=== PATIENT | female | born 1995 | race Caucasian/White ===

== ENCOUNTER 2018-02-13 13:16 | Emergency (ER) | payer SELFPAY ==
[~2018-02-13] VITALS: Ht 165.1 cm; Wt 87.5 kg
[2018-02-13 13:40] LABS: BILIRUBIN,URINE NEGATIVE (NEGATIVE); CLARITY,URINE SLIGHTLY CLOUDY; COLOR,URINE YELLOW; GLUCOSE, URINE (UA) NEGATIVE (NEGATIVE); KETONES,URINE NEGATIVE (NEGATIVE); LEUKOCYTE ESTERASE ,URINE NEGATIVE (NEGATIVE); NITRITE,URINE NEGATIVE (NEGATIVE); PH,URINE 7 (5-9); PROTEIN,URINE NEGATIVE (NEGATIVE); UROBILINOGEN,URINE NORMAL (NORMAL)
[2018-02-13 13:48] LABS: BACTERIA,URINE TRACE /HPF; WBC,URINE RARE /HPF
[2018-02-13 14:14] LABS: AMPHETAMINE SCREEN, URINE NEGATIVE (NEGATIVE); BARBITURATE SCREEN URINE NEGATIVE (NEGATIVE); BENZODIAZEPINES SCREEN URINE POSITIVE (NEGATIVE); CANNABINOID SCREEN, URINE NEGATIVE (NEGATIVE); COCAINE SCREEN URINE NEGATIVE (NEGATIVE); METHADONE STAT NEGATIVE (NEGATIVE); METHAMPHETAMINE SCREEN URINE S NEGATIVE (NEGATIVE); OPIATE SCREEN URINE NEGATIVE (NEGATIVE); OXYCODONE STAT NEGATIVE (NEGATIVE); PROPOXYPHENE STAT NEGATIVE (NEGATIVE); TRICYCLIC ANTIDEPRESSANTS SCRE NEGATIVE (NEGATIVE)
[2018-02-13] MEDS ORDERED: ONDANSETRON 4 MG/2 ML (SDV) Z0FRAN IVP ONE (14:30)
[2018-02-13] MEDS ORDERED: KETOROLAC 30 MG/ML VIAL IVP STA (14:30)
[2018-02-13] MEDS ORDERED: NS IV 1000 ML 1,000 ML IV ONE ×2 (14:30→15:14)
--- NOTE | 2018-02-13 14:32 | ED General ---
General Chief Complaint: General Problems/Pain Stated Complaint: FEVER/N/V Nursing Triage Note: Patient advises she has not felt well x 2 days and has been experiencing n/v. She advises she was admitted for 5 days to an [place] hospital approx. 8 months ago for sepsis. She advises they were going to put her on life support and never told her what was wrong and discharged her. She advises she feels sick like that again and has vomitted x 2 today and began experiencing a sore throat two days ago. Nursing Sepsis Screen: Possible Sepsis Risk Source of Information: Patient Exam Limitations: No Limitations History of Present Illness Date Seen by Provider: February 13, 2018 Time Seen by Provider: 14:12 Initial Comments 22-year-old female patient presents with complaints of fever, nausea, vomiting, diarrhea, sore throat, cough, congestion, and generalized body aches 2 days. Denies any recent contacts with similar symptoms. Patient reports 8 months ago being hospitalized in [place] for sepsis. Never received a definite diagnosis. Reports nausea, vomiting, and diarrhea similar to previous symptoms. Denies using any hjyd-qel-nxcpbbs medications for symptoms. Timing/Duration: 1-2 Days, Constant Allergies and Home Medications Allergies Coded Allergies: adhesive (Verified Allergy, Unknown, 02/13/18) tramadol (Verified Allergy, Unknown, 02/13/18) Uncoded Allergies: CODIENE (Allergy, Unknown, 02/13/18) Home Medications Ondansetron 8 Mg Tab.rapdis, 8 MG PO Q6H PRN for NAUSEA/VOMITING-1ST LINE Prescribed by: ROSARIO BUSH on 02/13/18 7488 Patient Home Medication List Home Medication List Reviewed: Yes Review of Systems Constitutional: chills; No dizziness; fever, malaise EENTM: ear pain, nose congestion, throat pain, other (rhinorrhea, sneezing); No throat swelling Respiratory: cough, phlegm; No short of breath, No wheezing Gastrointestinal: No abdominal pain; diarrhea; No hematemesis; loss of appetite ; No melena; nausea, vomiting Genitourinary: no symptoms reported Musculoskeletal: other (generalized body aches) Skin: no symptoms reported Psychiatric/Neurological: Headache; Denies Numbness, Denies Paresthesia, Denies Seizure, Denies Tingling All Other Systems Reviewed Negative Unless Noted: Yes (Negative excepted noted.) Past Agaxnmj-Wnabjf-Gsysyl Hx Patient Social History Alcohol Use: Denies Use Recreational Drug Use: No Smoking Status: Never a Smoker Recent Foreign Travel: No Contact w/Someone Who Travel: No Recent Infectious Disease Expo: No Recent Hopitalizations: Yes (advises admitted in [place] 8 months ago for sepsis) Physical Abuse: No Sexual Abuse: No Seasonal Allergies Seasonal Allergies: No Past Medical History Surgeries: Yes Appendectomy Respiratory: No Cardiac: No Neurological: Yes Headaches /Migraines, Seizure Disorder : No Female Reproductive Disorders: Pelvic Inflammatory Dis, Endometriosis, Polycystic Ovarian Dis Genitourinary: No Gastrointestinal: No Musculoskeletal: No Endocrine: No HEENT: No Cancer: No Psychosocial: Yes Anxiety, Bipolar, Depression Nursing Suicide Risk Score: 0 Integumentary: No Family Medical History Reviewed and Corrections made No Pertinent Family Hx, Psychiatric Problems Physical Exam Vital Signs Vital Signs - First Documented 02/13/18 13:56 Temp 99.7 Pulse 102 Resp 18 B/P (MAP) 140/87 (104) Pulse Ox 98 O2 Delivery Room Air Capillary Refill : Less Than 3 Seconds General Appearance: No Apparent Distress, WD/WN HEENT: PERRL/EOMI, Pharyngeal Erythema; No Photophobia; Other (cerumen impaction bilaterally TM's non-visible. (+) nasal congestion.) Neck: Full Range of Motion, Normal Inspection, Supple, Lymphadenopathy (L), Lymphadenopathy (R), Other (anterior neck lymph nodes TTP.) Respiratory: Lungs Clear, Normal Breath Sounds, No Accessory Muscle Use, No Respiratory Distress Cardiovascular: No Edema, No Murmur, Normal Peripheral Pulses, Tachycardia Gastrointestinal: Normal Bowel Sounds, No Organomegaly, Non Tender, Soft; No Distended Back: Normal Inspection, No CVA Tenderness Extremity: Normal Capillary Refill, No Pedal Edema Neurologic/Psychiatric: Alert, Oriented x3, Normal Mood/Affect Skin: Normal Color, Warm/Dry Focused Exam Lactate Level 02/13/18 15:30: Lactic Acid Level 0.74 Lactic Acid Level Progress/Results/Core Measures Suspected Sepsis Recent Fever Within 48 Hours: Yes Infection Criteria Present: Suspected New Infection New/Unexplained Altered Menta: No Sepsis Screen: Possible Sepsis Risk SIRS Temperature:99.7 Pulse: 102 Respiratory Rate: 18 Laboratory Tests 02/13/18 14:53: White Blood Count 14.2H Blood Pressure 140 /87 Mean: 104 02/13/18 15:30: Lactic Acid Level 0.74 Laboratory Tests 02/13/18 14:53: Creatinine 0.90, Platelet Count 184, Total Bilirubin 0.6 Results/Orders Lab Results Laboratory Tests Test 02/13/18 13:28 02/13/18 14:38 02/13/18 14:53 02/13/18 15:30 Range/Units Urine Color YELLOW Urine Clarity SLIGHTLY CLOUDY Urine pH 7 5-9 Urine Specific Cable 1.005 L 1.016-1.022 Urine Protein NEGATIVE NEGATIVE Urine Glucose (UA) NEGATIVE NEGATIVE Urine Ketones NEGATIVE NEGATIVE Urine Nitrite NEGATIVE NEGATIVE Urine Bilirubin NEGATIVE NEGATIVE Urine Urobilinogen NORMAL NORMAL MG/DL Urine Leukocyte Esterase NEGATIVE NEGATIVE Urine RBC (Auto) NEGATIVE NEGATIVE Urine RBC NONE /HPF Urine WBC RARE /HPF Urine Squamous Epithelial Cells 5-10 /HPF Urine Crystals NONE /LPF Urine Bacteria TRACE /HPF Urine Casts NONE /LPF Urine Mucus NEGATIVE /LPF Urine Culture Indicated NO Urine Opiates Screen NEGATIVE NEGATIVE Urine Oxycodone Screen NEGATIVE NEGATIVE Urine Methadone Screen NEGATIVE NEGATIVE Urine Propoxyphene Screen NEGATIVE NEGATIVE Urine Barbiturates Screen NEGATIVE NEGATIVE Ur Tricyclic Antidepressants Screen NEGATIVE NEGATIVE Urine Phencyclidine Screen NEGATIVE NEGATIVE Urine Amphetamines Screen NEGATIVE NEGATIVE Urine Methamphetamines Screen NEGATIVE NEGATIVE Urine Benzodiazepines Screen POSITIVE H NEGATIVE Urine Cocaine Screen NEGATIVE NEGATIVE Urine Cannabinoids Screen NEGATIVE NEGATIVE Group A Streptococcus Screen NEGATIVE NEGATIVE White Blood Count 14.2 H 4.3-11.0 10^3/uL Red Blood Count 4.56 4.35-5.85 10^6/uL Hemoglobin 13.4 11.5-16.0 G/DL Hematocrit 40 35-52 % Mean Corpuscular Volume 87 80-99 FL Mean Corpuscular Hemoglobin 29 25-34 PG Mean Corpuscular Hemoglobin Concent 34 32-36 G/DL Red Cell Distribution Width 12.9 10.0-14.5 % Platelet Count 184 130-400 10^3/uL Mean Platelet Volume 11.4 H 7.4-10.4 FL Neutrophils (%) (Auto) 82 H 42-75 % Lymphocytes (%) (Auto) 12 12-44 % Monocytes (%) (Auto) 6 0-12 % Eosinophils (%) (Auto) 0 0-10 % Basophils (%) (Auto) 0 0-10 % Neutrophils # (Auto) 11.6 H 1.8-7.8 X 10^3 Lymphocytes # (Auto) 1.7 1.0-4.0 X 10^3 Monocytes # (Auto) 0.9 0.0-1.0 X 10^3 Eosinophils # (Auto) 0.0 0.0-0.3 10^3/uL Basophils # (Auto) 0.0 0.0-0.1 10^3/uL Neutrophils % (Manual) 73 % Lymphocytes % (Manual) 15 % Monocytes % (Manual) 10 % Eosinophils % (Manual) 2 % Basophils % (Manual) 0 % Band Neutrophils 0 % Blood Morphology Comment NORMAL Sodium Level 138 135-145 MMOL/L Potassium Level 4.2 3.6-5.0 MMOL/L Chloride Level 107 98-107 MMOL/L Carbon Dioxide Level 23 21-32 MMOL/L Anion Gap 8 5-14 MMOL/L Blood Urea Nitrogen 11 7-18 MG/DL Creatinine 0.90 0.60-1.30 MG/DL Estimat Glomerular Filtration Rate > 60 BUN/Creatinine Ratio 12 Glucose Level 98 70-105 MG/DL Calcium Level 9.1 8.5-10.1 MG/DL Total Bilirubin 0.6 0.1-1.0 MG/DL Aspartate Amino Transf (AST/SGOT) 19 5-34 U/L Alanine Aminotransferase (ALT/SGPT) 16 0-55 U/L Alkaline Phosphatase 72 40-136 U/L C-Reactive Protein High Sensitivity 0.75 H 0.00-0.50 MG/DL Total Protein 6.8 6.4-8.2 GM/DL Albumin 4.1 3.2-4.5 GM/DL Monoscreen NEGATIVE NEGATIVE Lactic Acid Level 0.74 0.50-2.00 MMOL/L Micro Results Microbiology 02/13/18 Influenza Types A,B Antigen (ERIN) - Final, Complete My Orders Orders - ROSARIO BUSH Urine Bedside (02/13/18 13:33) Ua Culture If Indicated (02/13/18 13:33) Drug Screen Stat (Urine) (02/13/18 13:49) Cbc With Automated Diff (02/13/18 14:30) Comprehensive Metabolic Panel (02/13/18 14:30) Hs C Reactive Protein (02/13/18 14:30) Monotest (02/13/18 14:30) Rapid Strep A Screen (02/13/18 14:30) Influenza A And B Antigens (02/13/18 14:30) Ondansetron Injection (Zofran Injectio (02/13/18 14:30) Saline Lock/Iv-Start (02/13/18 14:30) Ketorolac Injection (Toradol Injection) (02/13/18 14:30) Ns Iv 1000 Ml (Sodium Chloride 0.9%) (02/13/18 14:30) Manual Differential (02/13/18 14:53) Lactic Acid Analyzer (02/13/18 15:14) Blood Culture (02/13/18 15:14) Ns Iv 1000 Ml (Sodium Chloride 0.9%) (02/13/18 15:14) Chest 1 View, Ap/Pa Only (02/13/18 15:15) Medications Given in ED Current Medications Medications Dose Ordered Sig/Karolina Route Start Time Stop Time Status Last Admin Dose Admin Ondansetron HCl 4 mg ONCE ONCE IVP 02/13/18 14:30 02/13/18 14:32 DC 02/13/18 14:41 4 MG Sodium Chloride 1,000 ml @ 0 mls/hr Q0M ONCE IV 02/13/18 14:30 02/13/18 14:32 DC 02/13/18 14:41 0 MLS/HR Sodium Chloride 1,000 ml @ 0 mls/hr Q0M ONCE IV 02/13/18 15:14 02/13/18 15:15 DC 02/13/18 15:43 0 MLS/HR Vital Signs/I&O 02/13/18 02/13/18 13:56 16:20 Temp 99.7 99.7 Pulse 102 102 Resp 18 18 B/P (MAP) 140/87 (104) 140/87 (104) Pulse Ox 98 98 O2 Delivery Room Air Capillary Refill : Less Than 3 Seconds Blood Pressure Mean: 104 Point of Care Testing Urine -Bedside: Negative Departure Communication (Admissions) Patient feels much better with medications. Plan for dsch to home. Impression Primary Impression: Influenza-like illness Additional Impression: Nausea, vomiting and diarrhea Disposition: HOME, SELF-CARE Condition: Improved Departure-Patient Inst. Decision time for Depature: 15:54 Referrals: [facility] (PCP/Family) Primary Care Physician Patient Instructions: Flu, Adult (DC), Viral Gastroenteritis, Adult (DC) Add. Discharge Instructions: All discharge instructions reviewed with patient and/or family. Voiced understanding. Medications as instructed. Tylenol Extra Strength over-the- counter 1000 mg every 6 hours as needed for fever, headache, or pain. Do not exceed 3000 mg of Tylenol in 24 hours. Ibuprofen 800 mg by mouth every 8 hours as needed for pain, headache, or fever. Push fluids. Rizs-ige-cfvmbse throat lozenges, Imodium, Afrin nasal spray, saline nose spray, antihistamines, decongestants, and cough suppressants as needed for symptoms. Drink plenty of fluids. Alternate water with powerade/gatorade. Follow-up with your family practitioner at [facility] for recheck as an outpatient early this week. Call Thursday morning for an appointment time. Return to the emergency department for worsened symptoms or any other concerns. Scripts Ondansetron (Ondansetron Odt) 8 Mg Tab.rapdis 8 MG PO Q6H PRN for NAUSEA/VOMITING-1ST LINE, #10 TAB 0 Refills Prov: ROSARIO BUSH 02/13/18 Work/School Note: Work Release Form Date Seen in the Emergency Department: February 13, 2018 Return to Work: February 15, 2018 Restrictions: Return-No Fever (24hrs), Return-No Vomiting(24hrs) ROSARIO BUSH February 13, 2018 14:32
[2018-02-13 15:00] LABS: BASOPHILS % (AUTO) 0 % (0-10); EOSINOPHILS % (AUTO) 0 % (0-10); HEMATOCRIT 40 % (35-52); HEMOGLOBIN 13.4 G/DL (11.5-16.0); LYMPHOCYTES # (AUTO) 1.7 X 10^3 (1.0-4.0); LYMPHOCYTES % (AUTO) 12 % (12-44); MEAN CORPUSCULAR HEMOGLOBIN 29 PG (25-34); MEAN CORPUSCULAR HGB CONC 34 G/DL (32-36); MEAN CORPUSCULAR VOLUME 87 FL (80-99); MEAN PLATELET VOLUME 11.4 FL (7.4-10.4); MONOCYTES # (AUTO) 0.9 X 10^3 (0.0-1.0); MONOCYTES % (AUTO) 6 % (0-12); NEUTROPHILS # (AUTO) 11.6 X 10^3 (1.8-7.8); NEUTROPHILS % (AUTO) 82 % (42-75); PLATELET COUNT 184 10^3/uL (130-400); RED BLOOD COUNT 4.56 10^6/uL (4.35-5.85); RED CELL DISTRIBUTION WIDTH 12.9 % (10.0-14.5); WHITE BLOOD COUNT 14.2 10^3/uL (4.3-11.0)
[2018-02-13 15:19] LABS: ALANINE AMINOTRANSFERASE 16 U/L (0-55); ALBUMIN 4.1 GM/DL (3.2-4.5); ALKALINE PHOSPHATASE 72 U/L (40-136); BILIRUBIN,TOTAL 0.6 MG/DL (0.1-1.0); BUN/CREATININE RATIO 12; CALCIUM 9.1 MG/DL (8.5-10.1); CARBON DIOXIDE 23 MMOL/L (21-32); CHLORIDE 107 MMOL/L (98-107); GFR ESTIMATED > 60; GLUCOSE 98 MG/DL (70-105); POTASSIUM 4.2 MMOL/L (3.6-5.0); SODIUM 138 MMOL/L (135-145); TOTAL PROTEIN 6.8 GM/DL (6.4-8.2)
[2018-02-13 15:21] LABS: BAND NEUTROPHILS 0 %; BASOPHILS % (MANUAL) 0 %; EOSINOPHILS % (MANUAL) 2 %; LYMPHOCYTES % (MANUAL) 15 %; MONOCYTES % (MANUAL) 10 %; NEUTROPHILS % (MANUAL) 73 %; RBC MORPH NORMAL
[2018-02-13] MEDS ORDERED: ONDA8TAB13 PO (15:57)
--- NOTE | 2018-02-13 15:57 | Diagnostic Imaging Report ---
PATIENT HISTORY: Fever, nausea, vomiting. TECHNIQUE: Single frontal view of the chest. COMPARISON: None. FINDINGS: The lung volumes are normal. No focal consolidation is seen. No large pleural effusion or pneumothorax is seen. The cardiomediastinal silhouette is normal in size and contour. No acute osseous abnormality is seen. IMPRESSION: No acute pulmonary abnormality seen. Dictated by: Dictated on workstation # [id number]
[2018-02-13 16:20] VITALS: BP 140/87
== END 2018-02-13 16:27 | disposition home or self-care (01) ==
LOC: EDUNIT# 13:16 → ER 13:20
DX: J11.1 Influenza due to unidentified influenza virus with other respiratory manifestations (principal); R19.7 Diarrhea, unspecified; R11.2 Nausea with vomiting, unspecified; G43.909 Migraine, unspecified, not intractable, without status migrainosus; G40.909 Epilepsy, unspecified, not intractable, without status epilepticus; F41.9 Anxiety disorder, unspecified; F31.9 Bipolar disorder, unspecified; Z87.42 Personal history of other diseases of the female genital tract; Z91.048 Other nonmedicinal substance allergy status; Z88.5 Allergy status to narcotic agent
CPT/HCPCS: 36415; 71045; 80053; 80306; 81000; 83605; 84703; 85007; 85027; 86141; 86308; 87040; 87430; 87804; 96374; 96375

== ENCOUNTER 2018-05-20 15:57 | Emergency (ER) | payer SELFPAY ==
[~2018-05-20] VITALS: Ht 165.1 cm; Wt 95.3 kg
[~2018-05-20 15:57] MED LIST: ONDA8TAB13 PO
--- OUTSIDE RECORDS SUMMARY | 2018-05-20 16:02 | XMS REPORT ---
Author Author HENOK LANDA [facility] Address [address] [place] [address] Care Team Providers Care Rag Willow Operator Name Role Phone HENOK LANDA Unavailable PROBLEMS Type Condition ICD9-CM Code [id number] Code Onset Dates Condition Status SNOMED Code Problem Upper respiratory infection with cough and congestion J06.9 Active 33543347 Problem Irregular bleeding N92.6 Active 69425670 Problem Mood disorder F39 Active 54025343 Problem Hyperlipidemia, unspecified hyperlipidemia type E78.5 Active 07685514 Problem Seizure disorder G40.909 Active 023236999 ALLERGIES No Information ENCOUNTERS Encounter Location Date Diagnosis [place] [id number] [address] May, [place] [address] [address] May, [place] [address] [address] Apr, Visit for TB skin test Z11.1 [place] [address] [place] [id number] [place] [address] Apr, Mood disorder F39 [place] [address] [address] Mar, Seizure disorder G40.909 and Long-term use of high-risk medication Z79.899 [facility] [address] [address] February, Viral gastroenteritis A08.4 [place] [address] [place] [id number] [place] [address] February, Upper respiratory infection with cough and congestion J06.9 [place] [address] [address] February, Upper respiratory infection with cough and congestion J06.9 and Seizure disorder G40.909 [place] [address] [place] [address] Jan, Seizure disorder G40.909 [place] [address] [place] [id number] [place] [address] Jan, control counseling Z30.09 and Irregular bleeding N92.6 [place] [address] [place] [id number] [place] [address] Dec, Hyperlipidemia, unspecified hyperlipidemia type E78.5 [place] [address] [place] [address] Dec, Seizure disorder G40.909 ; Encounter to establish care Z76.89 and Drug-induced constipation K59.03 [place] [address] [place] [address] Dec, IMMUNIZATIONS No Known Immunizations SOCIAL HISTORY Never Assessed REASON FOR VISIT Refill request PLAN OF CARE VITAL SIGNS MEDICATIONS Medication Instructions Dosage Frequency Start Date End Date Duration Status Depakote ER 500 mg Orally 4 times a day as directed 6h Dec, 30 days Active RESULTS No Results PROCEDURES No Known procedures INSTRUCTIONS MEDICATIONS ADMINISTERED No Known Medications MEDICAL (GENERAL) HISTORY Type Description Date Medical History epilepsy Medical History Pelvic Inflammatory Disease Medical History Endometriosis Medical History HPV Medical History Ovarian Cysts Surgical History appendectomy Hospitalization History septic 2017 Hospitalization History epidectomy 2006
--- OUTSIDE RECORDS SUMMARY | 2018-05-20 16:02 | XMS REPORT ---
Author Author HENOK LANDA [facility] Address [address] [place] [address] Care Team Providers Care Rougher For Cement Name Role Phone HENOK LANDA Unavailable PROBLEMS Type Condition ICD9-CM Code [id number] Code Onset Dates Condition Status SNOMED Code Problem Upper respiratory infection with cough and congestion J06.9 Active 95269628 Problem Irregular bleeding N92.6 Active 23307922 Problem Mood disorder F39 Active 14961922 Problem Hyperlipidemia, unspecified hyperlipidemia type E78.5 Active 62664027 Problem Seizure disorder G40.909 Active 472534076 ALLERGIES No Information ENCOUNTERS Encounter Location Date Diagnosis [facility] [address] [address] Apr, [facility] [address] [address] Apr, [place] [address] [address] Apr, Mood disorder F39 [place] [address] [address] Mar, Seizure disorder G40.909 and Long-term use of high-risk medication Z79.899 [facility] [address] [place] [id number] [place] [address] February, Viral gastroenteritis A08.4 [facility] [address] [address] February, Upper respiratory infection with cough and congestion J06.9 [facility] [address] [address] February, Upper respiratory infection with cough and congestion J06.9 and Seizure disorder G40.909 [place] [address] [address] Jan, Seizure disorder G40.909 [place] [address] [place] [address] Jan, control counseling Z30.09 and Irregular bleeding N92.6 [place] [address] [place] [address] Dec, Hyperlipidemia, unspecified hyperlipidemia type E78.5 [place] [address] [place] [address] Dec, Seizure disorder G40.909 ; Encounter to establish care Z76.89 and Drug-induced constipation K59.03 [place] [address] [place] [address] Dec, IMMUNIZATIONS No Known Immunizations SOCIAL HISTORY Never Assessed REASON FOR VISIT Lab results PLAN OF CARE VITAL SIGNS MEDICATIONS Unknown Medications RESULTS No Results PROCEDURES No Known procedures INSTRUCTIONS MEDICATIONS ADMINISTERED No Known Medications MEDICAL (GENERAL) HISTORY Type Description Date Medical History epilepsy Medical History Pelvic Inflammatory Disease Medical History Endometriosis Medical History HPV Medical History Ovarian Cysts Surgical History appendectomy Hospitalization History septic 2017 Hospitalization History epidectomy 2006
--- OUTSIDE RECORDS SUMMARY | 2018-05-20 16:02 | XMS REPORT ---
Author Author HENOK LANDA Organization [facility] Address [address] [place] [address] Care Team Providers Care Cargo Bracer Name Role Phone HENOK LANDA Unavailable PROBLEMS Type Condition ICD9-CM Code [id number] Code Onset Dates Condition Status SNOMED Code Problem Upper respiratory infection with cough and congestion J06.9 Active 46151036 Problem Irregular bleeding N92.6 Active 77251653 Problem Hyperlipidemia, unspecified hyperlipidemia type E78.5 Active 48533080 Problem Seizure disorder G40.909 Active 289803534 ALLERGIES Substance Reaction Event Type Date Status Tramadol HCl rash Drug Allergy Dec, Active Codeine Phosphate rash Drug Allergy Dec, Active adhesive rash Non Drug Allergy Dec, Active ENCOUNTERS Encounter Location Date Diagnosis [place] [address] [place] [id number] [place] [address] Apr, [facility] [address] [address] Apr, [facility] [address] [place] [id number] [place] [address] Apr, [facility] [address] [place] [id number] [place] [address] Mar, Seizure disorder G40.909 and Long-term use of high-risk medication Z79.899 [facility] [address] [place] [id number] [place] [address] February, Viral gastroenteritis A08.4 [facility] [address] [place] [id number] [place] [address] February, Upper respiratory infection with cough and congestion J06.9 [facility] [address] [address] February, Upper respiratory infection with cough and congestion J06.9 and Seizure disorder G40.909 [place] [address] [place] [address] Jan, Seizure disorder G40.909 [place] [address] [place] [address] Jan, control counseling Z30.09 and Irregular bleeding N92.6 [place] [address] [place] [id number] [place] [address] Dec, Hyperlipidemia, unspecified hyperlipidemia type E78.5 [place] [address] [place] [id number] [place] [address] Dec, Seizure disorder G40.909 ; Encounter to establish care Z76.89 and Drug-induced constipation K59.03 [place] [address] [place] [address] Dec, IMMUNIZATIONS No Known Immunizations SOCIAL HISTORY Never Assessed REASON FOR VISIT [facility] updated PLAN OF CARE VITAL SIGNS MEDICATIONS Unknown Medications RESULTS No Results PROCEDURES No Known procedures INSTRUCTIONS MEDICATIONS ADMINISTERED No Known Medications MEDICAL (GENERAL) HISTORY Type Description Date Medical History epilepsy Medical History Pelvic Inflammatory Disease Medical History Endometriosis Medical History HPV Medical History Ovarian Cysts Surgical History appendectomy Hospitalization History septic 2017 Hospitalization History epidectomy 2006
--- OUTSIDE RECORDS SUMMARY | 2018-05-20 16:02 | XMS REPORT ---
Author Author DAMION EUBANKS Organization [facility] Address [address] [place] [address] Care Team Providers Care Shaker Screen Operator Name Role Phone DAMION EUBANKS Unavailable PROBLEMS Type Condition ICD9-CM Code WOR34-GG Code Onset Dates Condition Status SNOMED Code Problem Upper respiratory infection with cough and congestion J06.9 Active 10387202 Problem Irregular bleeding N92.6 Active 65713390 Problem Mood disorder F39 Active 77436648 Problem Hyperlipidemia, unspecified hyperlipidemia type E78.5 Active 01495248 Problem Seizure disorder G40.909 Active 997479680 ALLERGIES Substance Reaction Event Type Date Status Tramadol HCl rash Drug Allergy Jan, Active Codeine Phosphate rash Drug Allergy Jan, Active adhesive rash Non Drug Allergy Jan, Active ENCOUNTERS Encounter Location Date Diagnosis [facility] [address] [place] [id number] [place] [address] May, [facility] [address] [address] May, [facility] [address] [place] [id number] [place] [address] Apr, Visit for TB skin test Z11.1 [facility] [address] [place] [id number] [place] [address] Apr, Mood disorder F39 [facility] [address] [place] [id number] [place] [address] Mar, Seizure disorder G40.909 and Long-term use of high-risk medication Z79.899 [facility] [address] [place] [id number] [place] [address] February, Viral gastroenteritis A08.4 [facility] [address] [place] [address] February, Upper respiratory infection with cough and congestion J06.9 [place] [address] [address] [place] [address] February, Upper respiratory infection with cough and congestion J06.9 and Seizure disorder G40.909 [place] [address] [place] [id number] [place] [address] Jan, Seizure disorder G40.909 [place] [address] [address] Jan, control counseling Z30.09 and Irregular bleeding N92.6 [place] [address] [address] Dec, Hyperlipidemia, unspecified hyperlipidemia type E78.5 [place] [address] [address] Dec, Seizure disorder G40.909 ; Encounter to establish care Z76.89 and Drug-induced constipation K59.03 [place] [address] [place] [id number] [place] [address] Dec, IMMUNIZATIONS No Known Immunizations SOCIAL HISTORY Never Assessed REASON FOR VISIT control consult , she would like to talk with doctor about different options paragard and NuvaRing -- rei phillips PLAN OF CARE Activity Details Follow Up Will get you schedule when IUD is delivered Reason: VITAL SIGNS Height 5'7" in 2018-01-12 Weight 193.2 lbs 2018-01-12 Temperature 98.0 degrees Fahrenheit 2018-01-12 Heart Rate 78 bpm 2018-01-12 Respiratory Rate 20 2018-01-12 BMI 30.26 kg/m2 2018-01-12 Blood pressure systolic 118 mmHg 2018-01-12 Blood pressure diastolic 70 mmHg 2018-01-12 MEDICATIONS Medication Instructions Dosage Frequency Start Date [...] Cysts Surgical History appendectomy Hospitalization History septic 2016 Hospitalization History epidectomy 2005
--- OUTSIDE RECORDS SUMMARY | 2018-05-20 16:02 | XMS REPORT ---
Author Author HENOK LANDA Organization [facility] Address [address] [place] [address] Care Team Providers Care Paint Stripper Name Role Phone HENOK LANDA Unavailable PROBLEMS Type Condition ICD9-CM Code QNL09-TV Code Onset Dates Condition Status SNOMED Code Problem Upper respiratory infection with cough and congestion J06.9 Active 92426813 Problem Irregular bleeding N92.6 Active 73018188 Problem Hyperlipidemia, unspecified hyperlipidemia type E78.5 Active 27942484 Problem Seizure disorder G40.909 Active 183358982 ALLERGIES Substance Reaction Event Type Date Status Tramadol HCl rash Drug Allergy Dec, Active Codeine Phosphate rash Drug Allergy Dec, Active adhesive rash Non Drug Allergy Dec, Active ENCOUNTERS Encounter Location Date Diagnosis [place] [id number] [place] [address] Apr, [facility] [address] [address] Apr, [facility] [id number] [place] [address] 28830[address] 29[address] Apr, [facility] [id number] [place] [address] 97046- 2081 Mar, Seizure disorder G40.909 and Long-term use of high-risk medication Z79.899 [facility] [id number] [place] [address] February, Viral gastroenteritis A08.4 [facility] [id number] [place] [address] 65750[address] 8[address] February, Upper respiratory infection with cough and congestion J06.9 [facility] [address] [address] February, Upper respiratory infection with cough and congestion J06.9 and Seizure disorder G40.909 [place] [address] [place] [address] 21548- 4897 Jan, Seizure disorder G40.909 [place] [address] [place] [address] 64731[address] 30[address] Jan, control counseling Z30.09 and Irregular bleeding N92.6 [place] [id number] [place] [address] 76380- 22[address] Dec, Hyperlipidemia, unspecified hyperlipidemia type E78.5 [place] [id number] [place] [address] 75[address]- [address]283 Dec, Seizure disorder G40.909 ; Encounter to establish care Z76.89 and Drug-induced constipation K59.03 [place] [address] [place] [address] 94262- 5775 Dec, IMMUNIZATIONS No Known Immunizations SOCIAL HISTORY Never Assessed REASON FOR VISIT Seizure / No Insurance, Offer FA--Maral Camarena has been off medication for a month because she does not have insurance , She wants to get back on medication, plus control PLAN OF CARE Activity Details Follow Up 4 Weeks, prn Reason:seizure disorder VITAL SIGNS Weight 186.3 lbs 2017-12-16 Temperature 98.4 degrees Fahrenheit 2017-12-16 Heart Rate 80 bpm 2017-12-16 Respiratory Rate 20 2017-12-16 Blood pressure systolic 108 mmHg 2017-12-16 Blood pressure diastolic 80 mmHg 2017-12-16 MEDICATIONS Medication Instructions Dosage Frequency Start Date End Date Duration Status MiraLax 17 gm/dose Orally twice a day 1 capful mixed with 8 ounces of fluid 12h Dec, February, 30 days Active Depakote ER 500 mg Orally 4 times a day as directed 6h Dec, 30 days Active RESULTS No Results PROCEDURES Procedure Date Ordered Result Body Site COMPLETE CBC W/AUTO DIFF WBC December 16, 2017 COMPREHEN METABOLIC PANEL December 16, 2017 LIPID PANEL December 16, 2017 ASSAY THYROID STIM HORMONE December 16, 2017 VENIPUNCT, ROUTINE* December 16, 2017 INSTRUCTIONS MEDICATIONS ADMINISTERED No Known Medications MEDICAL (GENERAL) HISTORY Type Description Date Medical History epilepsy Medical History Pelvic Inflammatory Disease Medical History Endometriosis Medical History HPV Medical History Ovarian Cysts Surgical History appendectomy Hospitalization History septic 2017 Hospitalization History epidectomy 2006
[2018-05-20] MEDS ORDERED: DEPAKOTE (16:22)
[2018-05-20] MEDS ORDERED: LATUDA (16:25)
[2018-05-20 16:48] LABS: BASOPHILS % (AUTO) 0 % (0-10); EOSINOPHILS # (AUTO) 0.2 10^3/uL (0.0-0.3); EOSINOPHILS % (AUTO) 2 % (0-10); HEMATOCRIT 39 % (35-52); HEMOGLOBIN 13.6 G/DL (11.5-16.0); LYMPHOCYTES # (AUTO) 3.4 X 10^3 (1.0-4.0); LYMPHOCYTES % (AUTO) 38 % (12-44); MEAN CORPUSCULAR HEMOGLOBIN 30 PG (25-34); MEAN CORPUSCULAR HGB CONC 35 G/DL (32-36); MEAN CORPUSCULAR VOLUME 88 FL (80-99); MEAN PLATELET VOLUME 11.6 FL (7.4-10.4); MONOCYTES # (AUTO) 0.8 X 10^3 (0.0-1.0); MONOCYTES % (AUTO) 9 % (0-12); NEUTROPHILS # (AUTO) 4.6 X 10^3 (1.8-7.8); NEUTROPHILS % (AUTO) 52 % (42-75); PLATELET COUNT 211 10^3/uL (130-400); RED BLOOD COUNT 4.49 10^6/uL (4.35-5.85); RED CELL DISTRIBUTION WIDTH 12.9 % (10.0-14.5)
--- NOTE | 2018-05-20 16:52 | Diagnostic Imaging Report ---
INDICATION: Ankle pain. COMPARISON: None. FINDINGS: Three views of the left ankle were obtained. There is no acute fracture or dislocation. No focal osseous lesions are seen. The surrounding soft tissue structures are unremarkable. There are no radiopaque foreign bodies. IMPRESSION: 1. No acute fracture or dislocation in the left ankle. Dictated by: Dictated on workstation # [id number]
--- NOTE | 2018-05-20 16:53 | Diagnostic Imaging Report ---
EXAMINATION: Left foot, three views. COMPARISON: None. HISTORY: 23-year-old female, left foot pain. FINDINGS: There is normal variant congenital fusion of the fifth digit middle and distal phalanges. There is no acute fracture. There is no identified abnormal bone alignment. The joint spaces are well preserved. There is no bone erosion. There is no prominent focal soft tissue swelling. IMPRESSION: Unremarkable radiographs of the left foot. Dictated by: Dictated on workstation # [id number]
[2018-05-20 17:02] LABS: ALANINE AMINOTRANSFERASE 43 U/L (0-55); ALBUMIN 4.2 GM/DL (3.2-4.5); ALKALINE PHOSPHATASE 65 U/L (40-136); BILIRUBIN,TOTAL 0.4 MG/DL (0.1-1.0); BUN/CREATININE RATIO 17; CALCIUM 9.1 MG/DL (8.5-10.1); CARBON DIOXIDE 22 MMOL/L (21-32); CHLORIDE 107 MMOL/L (98-107); CREATININE SERUM 0.95 MG/DL (0.60-1.30); GFR ESTIMATED > 60; GLUCOSE 107 MG/DL (70-105); POTASSIUM 3.8 MMOL/L (3.6-5.0); SODIUM 139 MMOL/L (135-145)
--- NOTE | 2018-05-20 17:27 | ED Lower Extremity ---
General Chief Complaint: Lower Extremity Stated Complaint: PAIN ON L SIDE FOOT/ANKLE Nursing Triage Note: AMB TO ROOM REPORTS HAS HAD L LEG AND ANKLE PAIN FOR 4-5 DAYS. HAS PRESSURE ON SIDE OF THIGH AND PAIN IN ANKLE. Nursing Sepsis Screen: No Definite Risk Source: patient Exam Limitations: no limitations History of Present Illness Date Seen by Provider: May 20, 2018 Time Seen by Provider: 16:04 Initial Comments Patient is a 23-year-old female who presents to the emergency room left ankle and left foot pain for 4 days. She reports that on 05/17/18 she was at an appointment for her intake for mental health at [facility] here in [facility] and the interview was very time consuming and she sat on her left ankle and foot for the majority of her interview and has had pain in her left ankle and foot ever since. Onset: other (4 days ago) Pain/Injury Location: left foot, left ankle Method of Injury: unknown Allergies and Home Medications Allergies Coded Allergies: adhesive (Verified Allergy, Unknown, 02/13/18) tramadol (Verified Allergy, Unknown, 02/13/18) Uncoded Allergies: CODIENE (Allergy, Unknown, 02/13/18) Home Medications Ondansetron 8 Mg Tab.rapdis, 8 MG PO Q6H PRN for NAUSEA/VOMITING-1ST LINE Prescribed by: ROSARIO BUSH on 02/13/18 8537 Patient Home Medication List Home Medication List Reviewed: Yes Constitutional: see HPI; No chills, No fever Musculoskeletal: see HPI, joint pain (left ankle); No joint swelling; muscle pain All Other Systems Reviewed Negative Unless Noted: Yes Past Bxvqlsp-Vytjil-Zfuixh Hx Past Med/Social Hx: Reviewed Nursing Past Med/Soc Hx Patient Social History Alcohol Use: Occasionally Uses Recreational Drug Use: No Smoking Status: Current Everyday Smoker Recent Foreign Travel: No Contact w/Someone Who Travel: No Recent Infectious Disease Expo: No Recent Hopitalizations: Yes (advises admitted in [place] 8 months ago for sepsis) Seasonal Allergies Seasonal Allergies: No Past Medical History Surgeries: Yes Appendectomy Respiratory: No Cardiac: No Neurological: Yes Headaches /Migraines, Seizure Disorder Female Reproductive Disorders: Pelvic Inflammatory Dis, Endometriosis, Polycystic Ovarian Dis Genitourinary: No Gastrointestinal: No Musculoskeletal: No Endocrine: No HEENT: No Cancer: No Psychosocial: Yes Anxiety, Bipolar, Depression Integumentary: No Family Medical History Reviewed Nursing Family Hx No Pertinent Family Hx, Psychiatric Problems Physical Exam Vital Signs Vital Signs - First Documented 05/20/18 16:04 Temp 98.5 Pulse 84 Resp 18 B/P (MAP) 139/98 (112) Pulse Ox 95 O2 Delivery Room Air Capillary Refill : Less Than 3 Seconds Height, Weight, BMI Height: 5'5.00" Weight: 210lbs. oz. 95.686208wa; BMI Method:Stated General Appearance: WD/WN, no apparent distress Cardiovascular: regular rate, rhythm, no edema, no gallop, no JVD, no murmur Respiratory: chest non-tender, lungs clear, normal breath sounds, no respiratory distress, no accessory muscle use Hips: bilateral hip non-tender, bilateral hip normal inspection, bilateral hip normal range of motion, bilateral hip no evidence of injury Legs: left leg other (calf tenderness) Knees: bilateral knee non-tender, bilateral knee normal inspection, bilateral knee normal range of motion, bilateral knee no evidence of injury Ankles: left ankle pain, left ankle soft tissue tenderness Feet: bilateral foot non-tender, bilateral foot normal inspection, bilateral foot normal range of motion, bilateral foot no evidence of injury Neurologic/Psychiatric: alert, normal mood/affect, oriented x 3 Skin: normal color, warm/dry Progress/Results/Core Measures Results/Orders Lab Results Laboratory Tests Test 05/20/18 16:35 Range/Units White Blood Count 9.0 4.3-11.0 10^3/uL Red Blood Count 4.49 4.35-5.85 10^6/uL Hemoglobin 13.6 11.5-16.0 G/DL Hematocrit 39 35-52 % Mean Corpuscular Volume 88 80-99 FL Mean Corpuscular Hemoglobin 30 25-34 PG Mean Corpuscular Hemoglobin Concent 35 32-36 G/DL Red Cell Distribution Width 12.9 10.0-14.5 % Platelet Count 211 130-400 10^3/uL Mean Platelet Volume 11.6 H 7.4-10.4 FL Neutrophils (%) (Auto) 52 42-75 % Lymphocytes (%) (Auto) 38 12-44 % Monocytes (%) (Auto) 9 0-12 % Eosinophils (%) (Auto) 2 0-10 % Basophils (%) (Auto) 0 0-10 % Neutrophils # (Auto) 4.6 1.8-7.8 X 10^3 Lymphocytes # (Auto) 3.4 1.0-4.0 X 10^3 Monocytes # (Auto) 0.8 0.0-1.0 X 10^3 Eosinophils # (Auto) 0.2 0.0-0.3 10^3/uL Basophils # (Auto) 0.0 0.0-0.1 10^3/uL D-Dimer 0.28 0.00-0.49 UG/ML Sodium Level 139 135-145 MMOL/L Potassium Level 3.8 3.6-5.0 MMOL/L Chloride Level 107 98-107 MMOL/L Carbon Dioxide Level 22 21-32 MMOL/L Anion Gap 10 5-14 MMOL/L Blood Urea Nitrogen 16 7-18 MG/DL Creatinine 0.95 0.60-1.30 MG/DL Estimat Glomerular Filtration Rate > 60 BUN/Creatinine Ratio 17 Glucose Level 107 H 70-105 MG/DL Calcium Level 9.1 8.5-10.1 MG/DL Corrected Calcium 8.9 8.5-10.1 MG/DL Total Bilirubin 0.4 0.1-1.0 MG/DL Aspartate Amino Transf (AST/SGOT) 27 5-34 U/L Alanine Aminotransferase (ALT/SGPT) 43 0-55 U/L Alkaline Phosphatase 65 40-136 U/L Total Protein 7.0 6.4-8.2 GM/DL Albumin 4.2 3.2-4.5 GM/DL My Orders Orders - TIMURDARCIE Ankle, Left, 3 Views (05/20/18 16:06) Cbc With Automated Diff (05/20/18 16:21) Comprehensive Metabolic Panel (05/20/18 16:21) Fibrin Degradation Products (05/20/18 16:21) Foot, Left, 3 Views (05/20/18 16:44) Vital Signs/I&O 05/20/18 05/20/18 16:04 17:42 Temp 98.5 98.5 Pulse 84 84 Resp 18 18 B/P (MAP) 139/98 (112) 139/98 (112) Pulse Ox 95 95 O2 Delivery Room Air Blood Pressure Mean: 112 Progress Progress Note : Progress Note I have seen and evaluated the patient. I have informed her of normal x-ray and normal laboratory findings. She agrees with plans for discharge, close follow up , and return precautions were given. Diagnostic Imaging Diagonstic Imaging: Xray Plain Films/CT/US/NM/MRI: ankle Comments NAME: SIENNA GUZMAN [facility] REC#: [id number] PT STATUS: DEP ER : 1995 PHYSICIAN: DARCIE DING ADMIT DATE: 05/20/18/ER Signed Date of Exam: 05/20/18 ANKLE, LEFT, 3 VIEWS INDICATION: Ankle pain. COMPARISON: None. FINDINGS: Three views of the left ankle were obtained. There is no acute fracture or dislocation. No focal osseous lesions are seen. The surrounding soft tissue structures are unremarkable. There are no radiopaque foreign bodies. IMPRESSION: 1. No acute fracture or dislocation in the left ankle. Dictated by: Dictated on workstation # [id number] Dict: 05/20/18 1649 Trans: 05/21/18 08 Interpreted by: TED BROUSSARD MD Electronically signed by: TED BROUSSARD MD 05/21/18 0809 NAME: SIENNA GUZMAN [facility] REC#: [id number] PHYSICIAN: DARCIE DING CC: DARCIE DING; YARIEL WEEKS MD Page 1 of 1 RADIOLOGY REPORT VIA [facility]. [place] CC: DARCIE DING; YARIEL WEEKS MD Page 1 of 1 RADIOLOGY REPORT NAME: SIENNA GUZMAN [facility] REC#: [id number] PT STATUS: REG ER : 1995 PHYSICIAN: DARCIE DING ADMIT DATE: 05/20/18/ER Signed Date of Exam: 05/20/18 FOOT, LEFT, 3 VIEWS EXAMINATION: Left foot, three views. COMPARISON: None. HISTORY: 23-year-old female, left foot pain. FINDINGS: There is normal variant congenital fusion of the fifth digit middle and distal phalanges. There is no acute fracture. There is no identified abnormal bone alignment. The joint spaces are well preserved. There is no bone erosion. There is no prominent focal soft tissue swelling. IMPRESSION: Unremarkable radiographs of the left foot. Dictated by: Dictated on workstation # [id number] Dict: 05/20/18 165 Trans: 05/20/181702 Interpreted by: YARIEL WEEKS MD Electronically signed by: YARIEL WEEKS MD 05/20/181702 Reviewed: Reviewed by Me Departure Impression Primary Impression: Sprain and strain of foot Disposition: HOME, SELF-CARE Condition: Stable/Unchanged Departure-Patient Inst. Decision time for Depature: 17:31 Referrals: [facility] (PCP/Family) Primary Care Physician Patient Instructions: Ankle Sprain (DC) Add. Discharge Instructions: You may use ibuprofen and Tylenol as directed by the bottle for pain relief. Follow-up with your doctor within 1 week for recheck. Return back to the emergency room for increased pain, worsening symptoms, or any other concerns as needed. All discharge instructions reviewed with patient and/or family. Voiced understanding. DARCIE DING May 20, 2018 17:27
[2018-05-20 17:42] VITALS: BP 139/98
== END 2018-05-20 17:41 | disposition home or self-care (01) ==
LOC: EDUNIT# 15:57 → ER 15:58
DX: S96.912A Strain of unspecified muscle and tendon at ankle and foot level, left foot, initial encounter (principal); G43.909 Migraine, unspecified, not intractable, without status migrainosus; G40.909 Epilepsy, unspecified, not intractable, without status epilepticus; F41.9 Anxiety disorder, unspecified; F31.9 Bipolar disorder, unspecified; F17.200 Nicotine dependence, unspecified, uncomplicated; Z90.89 Acquired absence of other organs; Z88.6 Allergy status to analgesic agent; Z87.448 Personal history of other diseases of urinary system; Z88.5 Allergy status to narcotic agent; Z91.048 Other nonmedicinal substance allergy status; X50.0XXA Overexertion from strenuous movement or load, initial encounter
CPT/HCPCS: 36415; 73610; 73630; 80053; 85025; 85379

== ENCOUNTER 2018-09-15 11:05 | Emergency (ER) | payer SELFPAY ==
[~2018-09-15] VITALS: Ht 165.1 cm; Wt 94.3 kg
[~2018-09-15 11:05] MED LIST changes: +DEPAKOTE; +LATUDA
[2018-09-15] MEDS ORDERED: ONDANSETRON 4 MG/2 ML (SDV) Z0FRAN IVP ONE (11:45)
--- OUTSIDE RECORDS SUMMARY | 2018-09-15 11:48 | XMS REPORT ---
Author Author ROSA M RASHMI Organization [facility] Address [address] [place] [address] Care Team Providers Care Border Measurer Name Role Phone ROSA M RASHMI Unavailable PROBLEMS Type Condition ICD9-CM Code SUT16-AY Code Onset Dates Condition Status SNOMED Code Problem Mood disorder F39 Active 35052759 Problem Cervical high risk human papillomavirus (HPV) DNA test positive R87.810 Active 982222678 Problem Bipolar disorder, current episode depressed, severe, without psychotic features F31.4 Active 077387597 Problem Hyperlipidemia, unspecified hyperlipidemia type E78.5 Active 62684347 Problem Seizure disorder G40.909 Active 322324742 Problem Upper respiratory infection with cough and congestion J06.9 Active 07986959 Problem Irregular bleeding N92.6 Active 30849388 ALLERGIES Substance Reaction Event Type Date Status Tramadol HCl rash, shakes, dry heaves Drug Allergy May, Active Codeine Phosphate rash, shaking, nausea Drug Allergy May, Active adhesive rash Non Drug Allergy May, Active ENCOUNTERS Encounter Location Date Diagnosis [facility] [address] [place] [address] Sep, [facility] [address] [place] [address] 63237- 8163 Jun, Cervical high risk human papillomavirus (HPV) DNA test positive R87.810 [facility] [id number] [address] Jun, [facility] [address] [place] [address] 41244- [address] Jun, Bipolar disorder, current episode depressed, severe, without psychotic features F31.4 [facility] [address] [place] [address] 94126- 9714 Jun, Seizure disorder G40.909 [facility] [id number] [place] [address] 28708- 8762 Jun, [facility] [id number] [place] [address] 67423- [address]231 May, Bipolar disorder, current episode depressed, severe, without psychotic features F31.4 [place] [id number] [place] [address] 57602- [address] May, Well woman exam Z01.419 ; Screening examination for sexually transmitted disease Z11.3 ; Cervical high risk human papillomavirus ( HPV) DNA test positive R87.810 and Atypical squamous cells of undetermined significance on cytologic smear of cervix (ASC-US) R87.610 [place] [id number] [place] [address] 91770- [address]44 May, [place] [address] [address]- [address] May, Acute left ankle pain M25.572 [place] [id number] [place] [address] 30170- 1816 May, Bipolar disorder, current episode depressed, severe, without psychotic features F31.4 [facility] [id number] [place] [address] 29804- 1510 May, Bipolar disorder, current episode depressed, severe, without psychotic features F31.4 [place] [id number] [place] [address] 44795- 3023 Apr, Visit for TB skin test Z11.1 [facility] [id number] [place] [address] 12246- 9640 Apr, Mood disorder F39 [place] [address] [address]- [address] Mar, Seizure disorder G40.909 and Long-term use of high-risk medication Z79.899 [facility] [id number] [place] [address]56 [address] February, Viral gastroenteritis A08.4 [place] [id number] [place] [address] 25685- 3714 February, Upper respiratory infection with cough and congestion J06.9 [place] [id number] [place] [address] 31906- 18[address] February, Upper respiratory infection with cough and congestion J06.9 and Seizure disorder G40.909 [place] [address] 949190- 7[address] Jan, Seizure disorder G40.909 [place] [address] [place] [address] Jan, control counseling Z30.09 and Irregular bleeding N92.6 [place] [address] [address]- [address] Dec, Hyperlipidemia, unspecified hyperlipidemia type E78.5 [place] [id number] [place] [address] 23089- 3349 Dec, Seizure disorder G40.909 ; Encounter to establish care Z76.89 and Drug-induced constipation K59.03 [place] [id number] [place] [address] 84681- [address]236 Dec, IMMUNIZATIONS No Known Immunizations SOCIAL HISTORY Never Assessed REASON FOR VISIT f/u KATRINA Doshi PLAN OF CARE Activity Details Follow Up 4 Weeks Reason: VITAL SIGNS Height 5'7" in 2018-06-07 Weight 201.1 lbs 2018-06-07 Heart Rate 76 bpm 2018-06-07 Respiratory Rate 18 2018-06-07 BMI 31.49 kg/m2 2018-06-07 Blood pressure systolic 124 mmHg 2018-06-07 Blood pressure diastolic 72 mmHg 2018-06-07 MEDICATIONS Medication Instructions Dosage Frequency Start Date End Date Duration Status Latuda 20 MG Orally every dinner time for one week 1 tablet May, Active Latuda 40 mg Orally every dinner time 1 tablet with food May, Active Depakote ER 500 mg Orally daily Take 3 tablets daily 24h 30 Active RESULTS No Results PROCEDURES No Known procedures INSTRUCTIONS MEDICATIONS ADMINISTERED No Known Medications MEDICAL (GENERAL) HISTORY Type Description Date Medical History generalized epilepsy-last seizure March 13 2016 Medical History Pelvic Inflammatory Disease Medical History Endometriosis Medical History HPV Medical History Ovarian Cysts, PCOS Surgical History appendectomy Hospitalization History septic 2017 Hospitalization History appendectomy 2006
--- OUTSIDE RECORDS SUMMARY | 2018-09-15 11:48 | XMS REPORT ---
Author Author ROSA M RASHMI Organization [facility] Address [address] [place] [address] Care Team Providers Care Manager Travel Name Role Phone ANANAV PAULA Unavailable PROBLEMS Type Condition ICD9-CM Code [id number] Code Onset Dates Condition Status SNOMED Code Problem Mood disorder F39 Active 31609928 Problem Dry eyes, bilateral H04.123 Active 835368783 Problem Cervical high risk human papillomavirus (HPV) DNA test positive R87.810 Active 944979785 Problem Bipolar disorder, current episode depressed, severe, without psychotic features F31.4 Active 101987393 Problem Hyperlipidemia, unspecified hyperlipidemia type E78.5 Active 99762092 Problem Seizure disorder G40.909 Active 660081857 Problem Upper respiratory infection with cough and congestion J06.9 Active 49659285 Problem Irregular bleeding N92.6 Active 35419579 ALLERGIES No Information ENCOUNTERS Encounter Location Date Diagnosis [facility] [id number] [place] [address] 09473- 0756 Sep, [facility] [id number] [place] [address] 41753- 6893 Jun, Cervical high risk human papillomavirus (HPV) DNA test positive R87.810 [facility] [address] [address] Jun, [facility] [id number] [place] [address] 65695- 4791 Jun, Bipolar disorder, current episode depressed, severe, without psychotic features F31.4 [facility] [id number] [place] [address] 38139- 5137 10 Jun, 2018 Seizure disorder G40.909 [facility] [id number] [place] [address] 71532- 2846 Jun, [facility] [id number] [place] [address] 57480- 2507 May, Bipolar disorder, current episode depressed, severe, without psychotic features F31.4 [facility] [id number] [place] [address] 23850- 9210 May, Well woman exam Z01.419 ; Screening examination for sexually transmitted disease Z11.3 ; Cervical high risk human papillomavirus ( HPV) DNA test positive R87.810 and Atypical squamous cells of undetermined significance on cytologic smear of cervix (ASC-US) R87.610 [place] [id number] [place] [address] 15483- 1708 May, [facility] [id number] [place] [address] 31165- 7568 May, Acute left ankle pain M25.572 [facility] [id number] [place] [address] 02299- 1212 May, Bipolar disorder, current episode depressed, severe, without psychotic features F31.4 [facility] [id number] [place] [address] 83956- 6792 May, Bipolar disorder, current episode depressed, severe, without psychotic features F31.4 [facility] [id number] [place] [address] 30384- 4350 Apr, Visit for TB skin test Z11.1 [facility] [id number] [place] [address] 98287- 1747 Apr, Mood disorder F39 [facility] [id number] [place] [address] 28657- 6262 Mar, Seizure disorder G40.909 and Long-term use of high-risk medication Z79.899 [facility] [id number] [place] [address] 04300 -9828 February, Viral gastroenteritis A08.4 [facility] [id number] [place] [address] 22156- 9505 February, Upper respiratory infection with cough and congestion J06.9 [facility] [id number] [place] [address] 21406- 3052 February, Upper respiratory infection with cough and congestion J06.9 and Seizure disorder G40.909 [facility] [id number] [place] [address] 90331- 8890 Jan, Seizure disorder G40.909 [facility] [id number] [place] [address] Jan, control counseling Z30.09 and Irregular bleeding N92.6 [facility] [id number] [place] [address]86 Dec, Hyperlipidemia, unspecified hyperlipidemia type E78.5 [facility] [id number] [place] [address] 84888- 5208 Dec, Seizure disorder G40.909 ; Encounter to establish care Z76.89 and Drug-induced constipation K59.03 [facility] [id number] [place] [address] 98595- 6117 Dec, IMMUNIZATIONS No Known Immunizations SOCIAL HISTORY Never Assessed REASON FOR VISIT f/u- AB/KATRINA PLAN OF CARE Activity Details Follow Up September Reason: VITAL SIGNS Height 5'7" in 2018-06-28 Weight 208.4 lbs 2018-06-28 Heart Rate 110 bpm 2018-06-28 Respiratory Rate 20 2018-06-28 BMI 32.64 kg/m2 2018-06-28 Blood pressure systolic 124 mmHg 2018-06-28 Blood pressure diastolic 72 mmHg 2018-06-28 MEDICATIONS Medication Instructions Dosage Frequency Start Date End Date Duration Status Latuda 40 mg Orally every dinner time [...]
--- OUTSIDE RECORDS SUMMARY | 2018-09-15 11:48 | XMS REPORT ---
Author Author YE WILKES [facility] Address [address] [place] [address] Care Team Providers Care Pharmacist Helper Name Role Phone YE WILKES Unavailable PROBLEMS Type Condition ICD9-CM Code [id number] Code Onset Dates Condition Status SNOMED Code Problem Mood disorder F39 Active 52079339 Problem Dry eyes, bilateral H04.123 Active 274477279 Problem Cervical high risk human papillomavirus (HPV) DNA test positive R87.810 Active 286293804 Problem Bipolar disorder, current episode depressed, severe, without psychotic features F31.4 Active 181193075 Problem Hyperlipidemia, unspecified hyperlipidemia type E78.5 Active 26273368 Problem Seizure disorder G40.909 Active 586460833 Problem Upper respiratory infection with cough and congestion J06.9 Active 47182059 Problem Irregular bleeding N92.6 Active 14387557 ALLERGIES Substance Reaction Event Type Date Status Tramadol HCl rash, shakes, dry heaves Drug Allergy Jun, Active Codeine Phosphate rash, shaking, nausea Drug Allergy Jun, Active adhesive rash Non Drug Allergy Jun, Active ENCOUNTERS Encounter Location Date Diagnosis [facility] [id number] [address] Sep, [facility] [address] [place] [address] 30163- 3383 Jun, Cervical high risk human papillomavirus (HPV) DNA test positive R87.810 [facility] [address] [place] [address] 46667- 5990 Jun, [facility] [address] [place] [address] 78773- 3570 Jun, Bipolar disorder, current episode depressed, severe, without psychotic features F31.4 [facility] [id number] [place] [address] 86973- 7656 Jun, Seizure disorder G40.909 [place] [address] 65618- 2965 Jun, [facility] [facility] [address] 42411- 4467 May, Bipolar disorder, current episode depressed, severe, without psychotic features F31.4 [facility] [address] 44264- 1445 May, Well woman exam Z01.419 ; Screening examination for sexually transmitted disease Z11.3 ; Cervical high risk human papillomavirus ( HPV) DNA test positive R87.810 and Atypical squamous cells of undetermined significance on cytologic smear of cervix (ASC-US) R87.610 [facility] [address] 09349- 7397 May, [facility] [address] 06723- 0808 May, Acute left ankle pain M25.572 [facility] [address] 62678- 7660 May, Bipolar disorder, current episode depressed, severe, without psychotic features F31.4 [facility] [id number] [place] [address] 97705- 1705 May, Bipolar disorder, current episode depressed, severe, without psychotic features F31.4 [facility] [id number] [place] [address] 18698- 4346 Apr, Visit for TB skin test Z11.1 [facility] [address] 50054- 3572 Apr, Mood disorder F39 [facility] [id number] [place] [address] 53580- 0488 Mar, Seizure disorder G40.909 and Long-term use of high-risk medication Z79.899 [facility] [address] [address] February, Viral gastroenteritis A08.4 [facility] [id number] [place] [address] 87876- 1749 February, Upper respiratory infection with cough and congestion J06.9 [facility] [id number] [place] [address] 88509- 9299 February, Upper respiratory infection with cough and congestion J06.9 and Seizure disorder G40.909 [facility] [address] 70111- 1742 Jan, Seizure disorder G40.909 [facility] [address] 97964- 9938 Jan, control counseling Z30.09 and Irregular bleeding N92.6 [facility] [address] 21604- 5480 Dec, Hyperlipidemia, unspecified hyperlipidemia type E78.5 [facility] [id number] [place] [address] 52635- 6533 Dec, Seizure disorder G40.909 ; Encounter to establish care Z76.89 and Drug-induced constipation K59.03 [facility] [id number] [place] [address] 77087- 6289 Dec, IMMUNIZATIONS No Known Immunizations SOCIAL HISTORY Never Assessed REASON FOR VISIT medication f/uShanna Sampson MA PLAN OF CARE Activity Details Follow Up 6 Months Reason: VITAL SIGNS Height 5'7" in 2018-06-21 Weight 207.0 lbs 2018-06-21 Temperature 98.3 degrees Fahrenheit 2018-06-21 Heart Rate 76 bpm 2018-06-21 Respiratory Rate 18 2018-06-21 BMI 32.42 kg/m2 2018-06-21 Blood pressure systolic 132 mmHg 2018-06-21 Blood pressure diastolic 98 mmHg 2018-06-21 MEDICATIONS Medication Instructions Dosage Frequency Start Date End Date Duration Status Depakote ER 500 mg Orally daily Take 3 tablets daily 24h 30 Active Latuda 40 mg Orally every dinner time 1 tablet with food May, Active Latuda 20 MG Orally every dinner time for one week 1 tablet May, Active RESULTS No Results PROCEDURES No Known procedures INSTRUCTIONS MEDICATIONS ADMINISTERED No Known Medications MEDICAL (GENERAL) HISTORY Type Description Date Medical History generalized epilepsy-last seizure March 13 2016 Medical History Pelvic Inflammatory Disease Medical History Endometriosis Medical History HPV Medical History Ovarian Cysts, PCOS Surgical History appendectomy Hospitalization History septic 2017 Hospitalization History appendectomy 2006
--- OUTSIDE RECORDS SUMMARY | 2018-09-15 11:48 | XMS REPORT ---
Author Author YE WILKES [facility] Address [address] [place] [address] Care Team Providers Care Automation Application Engineer Name Role Phone YE WILKES Unavailable PROBLEMS Type Condition ICD9-CM Code [id number]-[id number] Code Onset Dates Condition Status SNOMED Code Problem Mood disorder F39 Active 23710835 Problem Dry eyes, bilateral H04.123 Active 645518956 Problem Cervical high risk human papillomavirus (HPV) DNA test positive R87.810 Active 339219968 Problem Bipolar disorder, current episode depressed, severe, without psychotic features F31.4 Active 597327652 Problem Hyperlipidemia, unspecified hyperlipidemia type E78.5 Active 00282935 Problem Seizure disorder G40.909 Active 603861635 Problem Upper respiratory infection with cough and congestion J06.9 Active 94517523 Problem Irregular bleeding N92.6 Active 26271146 ALLERGIES No Information ENCOUNTERS Encounter Location Date Diagnosis [facility] [id number] [place] [address] 42371- 9220 Sep, [facility] [address] [place] [address] 62422- 0842 Jun, Cervical high risk human papillomavirus (HPV) DNA test positive R87.810 [facility] [address] [place] [address] 51575- 4067 Jun, [facility] [id number] [place] [address] 35196- 1427 17 Jun, 2018 Bipolar disorder, current episode depressed, severe, without psychotic features F31.4 [facility] [id number] [place] [address] 35583- 7480 10 Jun, 2018 Seizure disorder G40.909 [facility] [id number] [place] [address] 32052- 3517 Jun, [facility] [address] [place] [address] 47695- 0744 May, Bipolar disorder, current episode depressed, severe, without psychotic features F31.4 [facility] [address] [place] [address] 66355- 6566 May, Well woman exam Z01.419 ; Screening examination for sexually transmitted disease Z11.3 ; Cervical high risk human papillomavirus ( HPV) DNA test positive R87.810 and Atypical squamous cells of undetermined significance on cytologic smear of cervix (ASC-US) R87.610 [place] [id number] [place] [address] 74520- 1563 May, [place] [address] [place] [address] 32719- 6505 May, Acute left ankle pain M25.572 [place] [address] 06232- 8385 May, Bipolar disorder, current episode depressed, severe, without psychotic features F31.4 [facility] [address] [place] [address] 47844- 5707 May, Bipolar disorder, current episode depressed, severe, without psychotic features F31.4 [place] [address] [place] [address] 97740- 6123 Apr, Visit for TB skin test Z11.1 [facility] [address] [place] [address] 69787- 2390 Apr, Mood disorder F39 [facility] [address] [place] [address] 05334- 4399 Mar, Seizure disorder G40.909 and Long-term use of high-risk medication Z79.899 [facility] [address] [place] [address] 37091 -6685 February, Viral gastroenteritis A08.4 [facility] [address] [place] [address]- 5605 February, Upper respiratory infection with cough and congestion J06.9 [place] [address] 63619- 7940 February, Upper respiratory infection with cough and congestion J06.9 and Seizure disorder G40.909 [place] [address] 09296- 6869 Jan, Seizure disorder G40.909 [place] [address] 43241- 5004 Jan, control counseling Z30.09 and Irregular bleeding N92.6 [place] [address] 40616- 3492 Dec, Hyperlipidemia, unspecified hyperlipidemia type E78.5 [place] [address] 57388- 3792 Dec, Seizure disorder G40.909 ; Encounter to establish care Z76.89 and Drug-induced constipation K59.03 [place] [address] [place] [address] 53305- 6496 Dec, IMMUNIZATIONS No Known Immunizations SOCIAL HISTORY Never Assessed REASON FOR VISIT PLAN OF CARE VITAL SIGNS MEDICATIONS Unknown [...]
--- OUTSIDE RECORDS SUMMARY | 2018-09-15 11:48 | XMS REPORT ---
Author Author WILLIAN CALDERON [facility] Address [address] [place] [address] Care Team Providers Care Drilling Contractor Name Role Phone WILLIAN CALDERON Unavailable PROBLEMS ALLERGIES ENCOUNTERS IMMUNIZATIONS No Known Immunizations SOCIAL HISTORY No smoking Hx information available REASON FOR VISIT PLAN OF CARE VITAL SIGNS MEDICATIONS RESULTS PROCEDURES INSTRUCTIONS MEDICATIONS ADMINISTERED No Known Medications MEDICAL (GENERAL) HISTORY
--- OUTSIDE RECORDS SUMMARY | 2018-09-15 11:48 | XMS REPORT ---
Author Author HENOK LANDA Organization [facility] Address [address] [place] [address] Care Team Providers Care Senior Technical Analyst Name Role Phone HENOK LANDA Unavailable PROBLEMS Type Condition ICD9-CM Code FKL82-AS Code Onset Dates Condition Status SNOMED Code Problem Mood disorder F39 Active 05830848 Problem Dry eyes, bilateral H04.123 Active 437307723 Problem Cervical high risk human papillomavirus (HPV) DNA test positive R87.810 Active 824343954 Problem Bipolar disorder, current episode depressed, severe, without psychotic features F31.4 Active 869123974 Problem Hyperlipidemia, unspecified hyperlipidemia type E78.5 Active 79028421 Problem Seizure disorder G40.909 Active 010047240 Problem Upper respiratory infection with cough and congestion J06.9 Active 47167741 Problem Irregular bleeding N92.6 Active 12937072 ALLERGIES No Information ENCOUNTERS Encounter Location Date Diagnosis [facility] [address] [place] [address] 27523- 9632 Sep, [facility] [id number] [place] [address] 71444- 0340 Jun, Cervical high risk human papillomavirus (HPV) DNA test positive R87.810 [facility] [address] [place] [address] 97477- 8729 Jun, [facility] [address] [place] [address] 84005- 7615 Jun, Bipolar disorder, current episode depressed, severe, without psychotic features F31.4 [facility] [address] [place] [address] 35617- 7232 10 Jun, 2018 Seizure disorder G40.909 [facility] [id number] [place] [address] 00157- 8977 Jun, [facility] [address] [place] [address] 16718- 5790 May, Bipolar disorder, current episode depressed, severe, without psychotic features F31.4 [facility] [id number] [place] [address] 07849- 4597 May, Well woman exam Z01.419 ; Screening examination for sexually transmitted disease Z11.3 ; Cervical high risk human papillomavirus ( HPV) DNA test positive R87.810 and Atypical squamous cells of undetermined significance on cytologic smear of cervix (ASC-US) R87.610 [facility] [id number] [place] [address] 88439- 0800 May, [place] [address] [place] [address] 61789- 7741 May, Acute left ankle pain M25.572 [facility] [address] [place] [address] 54483- 1669 May, Bipolar disorder, current episode depressed, severe, without psychotic features F31.4 [facility] [address] [place] [address] 53754- 6979 May, Bipolar disorder, current episode depressed, severe, without psychotic features F31.4 [facility] [address] [place] [address] 99088- 7836 Apr, Visit for TB skin test Z11.1 [facility] [id number] [place] [address] 61987- 4617 Apr, Mood disorder F39 [place] [address] [place] [address] 42479- 7378 Mar, Seizure disorder G40.909 and Long-term use of high-risk medication Z79.899 [facility] [address] [place] [address] 81294 -5811 February, Viral gastroenteritis A08.4 [facility] [id number] [place] [address] 81341- 5277 February, Upper respiratory infection with cough and congestion J06.9 [facility] [address] [place] [address] 21360- 4904 February, Upper respiratory infection with cough and congestion J06.9 and Seizure disorder G40.909 [place] [id number] [place] [address] 95744- 1373 Jan, Seizure disorder G40.909 [place] [facility] [address] 96239290- 1010 Jan, control counseling Z30.09 and Irregular bleeding N92.6 [place] [address] 12559- 3193 Dec, Hyperlipidemia, unspecified hyperlipidemia type E78.5 [place] [id number] [place] [address] 80807- 6943 Dec, Seizure disorder G40.909 ; Encounter to establish care Z76.89 and Drug-induced constipation K59.03 [place] [facility] [id number] [place] [address] 24653- 5277 Dec, IMMUNIZATIONS No Known Immunizations SOCIAL HISTORY Never Assessed REASON FOR VISIT Eye Exam PLAN OF CARE VITAL SIGNS MEDICATIONS Unknown [...]
--- OUTSIDE RECORDS SUMMARY | 2018-09-15 11:48 | XMS REPORT ---
Author Author YE WILKES [facility] Address [address] [place] [address] Care Team Providers Care Chorus Master Name Role Phone YE WILKES Unavailable PROBLEMS Type Condition ICD9-CM Code PIL42-OC Code Onset Dates Condition Status SNOMED Code Problem Mood disorder F39 Active 87661124 Problem Dry eyes, bilateral H04.123 Active 356323295 Problem Cervical high risk human papillomavirus (HPV) DNA test positive R87.810 Active 748573675 Problem Bipolar disorder, current episode depressed, severe, without psychotic features F31.4 Active 032236557 Problem Hyperlipidemia, unspecified hyperlipidemia type E78.5 Active 15690839 Problem Seizure disorder G40.909 Active 266249517 Problem Upper respiratory infection with cough and congestion J06.9 Active 26649959 Problem Irregular bleeding N92.6 Active 24996705 ALLERGIES Substance Reaction Event Type Date Status Tramadol HCl rash, shakes, dry heaves Drug Allergy May, Active Codeine Phosphate rash, shaking, nausea Drug Allergy May, Active adhesive rash Non Drug Allergy May, Active ENCOUNTERS Encounter Location Date Diagnosis [place] [address], [place] [address] Sep, [facility] [address] [place] [address]99- 1764 Jun, Cervical high risk human papillomavirus (HPV) DNA test positive R87.810 [facility] [address] [place] [address] 27046- 5057 Jun, [facility] [address] [place] [address] 38739- 2136 Jun, Bipolar disorder, current episode depressed, severe, without psychotic features F31.4 [facility] [address] [place] [id number] [place] [address] 35166- 3051 Jun, Seizure disorder G40.909 [place] [address] [address] Jun, [place] [address] [address] 5[address] May, Bipolar disorder, current episode depressed, severe, without psychotic features F31.4 [place] [address] 075[address]- 6698 May, Well woman exam Z01.419 ; Screening examination for sexually transmitted disease Z11.3 ; Cervical high risk human papillomavirus ( HPV) DNA test positive R87.810 and Atypical squamous cells of undetermined significance on cytologic smear of cervix (ASC-US) R87.610 [place] [address] [address]07- [address] May, [place] [address] 81448- 8738 May, Acute left ankle pain M25.572 [place] [address] 12845- 4476 May, Bipolar disorder, current episode depressed, severe, without psychotic features F31.4 [place] [address] [place] [id number] [place] [address] 66473- 7820 May, Bipolar disorder, current episode depressed, severe, without psychotic features F31.4 [place] [address] [place] [id number] [place] [address] 31911- 8861 Apr, Visit for TB skin test Z11.1 [place] [address] 32379- 6785 Apr, Mood disorder F39 [place] [address] [place] [id number] [place] [address] 89202- 0894 Mar, Seizure disorder G40.909 and Long-term use of high-risk medication Z79.899 [facility] [address] [address] February, Viral gastroenteritis A08.4 [facility] [address] [place] [id number] [place] [address] 97904- 9961 February, Upper respiratory infection with cough and congestion J06.9 [place] [address] [place] [id number] [place] [address] 05612- 7040 February, Upper respiratory infection with cough and congestion J06.9 and Seizure disorder G40.909 [place] [address] [place] [id number] [place] [address] 91043- 0494 Jan, Seizure disorder G40.909 [place] [address] 92045- 3306 Jan, control counseling Z30.09 and Irregular bleeding N92.6 [place] [address] 65850- 3203 Dec, Hyperlipidemia, unspecified hyperlipidemia type E78.5 [place] [address] [place] [id number] [place] [address] 94950- 8494 Dec, Seizure disorder G40.909 ; Encounter to establish care Z76.89 and Drug-induced constipation K59.03 [place] [address] [place] [id number] [place] [address] 20180- 6022 Dec, IMMUNIZATIONS No Known Immunizations SOCIAL HISTORY Never Assessed REASON FOR VISIT Well Woman Exam -- rei phillips PLAN OF CARE Activity Details Follow Up 1 Year Reason: VITAL SIGNS Height 5'7" in 2018-06-07 Weight 202.0 lbs 2018-06-07 Temperature 98.0 degrees Fahrenheit 2018-06-07 Heart Rate 80 bpm 2018-06-07 Respiratory Rate 20 2018-06-07 BMI 31.63 kg/m2 2018-06-07 Blood pressure systolic 126 mmHg 2018-06-07 Blood pressure diastolic 78 mmHg 2018-06-07 MEDICATIONS Medication Instructions Dosage Frequency Start Date End Date Duration Status Latuda 40 mg Orally every dinner time 1 tablet with food May, 90 days Active Depakote ER 500 mg Orally daily Take 3 tablets daily 24h 30 Active Latuda 20 MG Orally every dinner time for one week 1 tablet May, 7 days Active RESULTS No Results PROCEDURES Procedure Date Ordered Result Body Site SPECIMEN HANDLING Jun 07, 2018 No Charge Jun 07, 2018 TRICHOMONAS ASSAY W/OPTIC Jun 07, 2018 INSTRUCTIONS MEDICATIONS ADMINISTERED No Known Medications MEDICAL (GENERAL) HISTORY Type Description Date Medical History generalized epilepsy-last seizure March 13 2016 Medical History Pelvic Inflammatory Disease Medical History Endometriosis Medical History HPV Medical History Ovarian Cysts, PCOS Surgical History appendectomy Hospitalization History septic 2017 Hospitalization History appendectomy 2006
--- OUTSIDE RECORDS SUMMARY | 2018-09-15 11:49 | XMS REPORT ---
Author Author ROSA M RASHMI Organization [facility] Address [address] [place] [address] Care Team Providers Care Last Model Department Supervisor Name Role Phone ANAHUMBERTO RASHMI Unavailable PROBLEMS Type Condition ICD9-CM Code WXR24-PP Code Onset Dates Condition Status SNOMED Code Problem Mood disorder F39 Active 46911057 Problem Cervical high risk human papillomavirus (HPV) DNA test positive R87.810 Active 697364499 Problem Bipolar disorder, current episode depressed, severe, without psychotic features F31.4 Active 263287753 Problem Hyperlipidemia, unspecified hyperlipidemia type E78.5 Active 18129420 Problem Seizure disorder G40.909 Active 640719604 Problem Upper respiratory infection with cough and congestion J06.9 Active 88858883 Problem Irregular bleeding N92.6 Active 39157581 ALLERGIES No Information ENCOUNTERS Encounter Location Date Diagnosis [facility] [address] [place] [address] 20837- 7003 Jun, [facility] [address] [place] [id number] [place] [address] 04596- 6893 Jun, [facility] [address] [place] [address] 99988- 2839 Jun, [facility] [id number] [place] [address] 85539- 8939 Jun, Seizure disorder G40.909 [facility] [address] [place] [address] 52305- 8284 Jun, [facility] [id number] [place] [address] 63231- 8179 May, Bipolar disorder, current episode depressed, severe, without psychotic features F31.4 [facility] [id number] [place] [address] 98276- 9789 May, Well woman exam Z01.419 ; Screening examination for sexually transmitted disease Z11.3 ; Cervical high risk human papillomavirus ( HPV) DNA test positive R87.810 and Atypical squamous cells of undetermined significance on cytologic smear of cervix (ASC-US) R87.610 [place] [address] [address] [id number] [place] [address] 97889- 6172 May, [place] [address] 49447- 4516 May, Acute left ankle pain M25.572 [place] [address] 57399- 8922 07 May, 2018 Bipolar disorder, current episode depressed, severe, without psychotic features F31.4 [place] [address] 30752- 2352 May, Bipolar disorder, current episode depressed, severe, without psychotic features F31.4 [place] [address] 17419- 2994 Apr, Visit for TB skin test Z11.1 [place] [address] 49346- 2553 Apr, Mood disorder F39 [place] [address] 96916- 9584 Mar, Seizure disorder G40.909 and Long-term use of high-risk medication Z79.899 [facility] [id number] [place] [address] 89564 -3613 February, Viral gastroenteritis A08.4 [place] [address] 60656- 0935 February, Upper respiratory infection with cough and congestion J06.9 [facility] [address] [place] [address] [id number] [place] [address] 13994- 6174 February, Upper respiratory infection with cough and congestion J06.9 and Seizure disorder G40.909 [place] [address] [place] [id number] [address] Jan, Seizure disorder G40.909 [place] [address] [place] [address] 70613- 8129 Jan, control counseling Z30.09 and Irregular bleeding N92.6 [place] [address] [place] [address] 15760- 0434 Dec, Hyperlipidemia, unspecified hyperlipidemia type E78.5 [place] [address] [place] [address] 64883- 7785 Dec, Seizure disorder G40.909 ; Encounter to establish care Z76.89 and Drug-induced constipation K59.03 [place] [address] [address] 6178 Dec, IMMUNIZATIONS No Known Immunizations SOCIAL HISTORY Never Assessed REASON FOR VISIT PALS-latuda PLAN OF CARE VITAL SIGNS MEDICATIONS Medication Instructions Dosage Frequency Start Date End Date Duration Status Latuda 40 mg Orally every dinner time 1 tablet with food May, 90 days Active RESULTS No Results PROCEDURES No Known procedures INSTRUCTIONS MEDICATIONS ADMINISTERED No Known Medications MEDICAL (GENERAL) HISTORY Type Description Date Medical History generalized epilepsy-last seizure March 13 2016 Medical History Pelvic Inflammatory Disease Medical History Endometriosis Medical History HPV Medical History Ovarian Cysts, PCOS Surgical History appendectomy Hospitalization History septic 2017 Hospitalization History appendectomy 2006
--- OUTSIDE RECORDS SUMMARY | 2018-09-15 11:49 | XMS REPORT ---
Author Author HAMZAH KERNS Organization [facility] Address Unknown Care Team Providers Care Safety Scientist Name Role Phone LUIS FMATTHEW LOYOLALEY Unavailable PROBLEMS Type Condition ICD9-CM Code ZCN95-LH Code Onset Dates Condition Status SNOMED Code Problem Mood disorder F39 Active 87293515 Problem Cervical high risk human papillomavirus (HPV) DNA test positive R87.810 Active 949900996 Problem Bipolar disorder, current episode depressed, severe, without psychotic features F31.4 Active 662150041 Problem Hyperlipidemia, unspecified hyperlipidemia type E78.5 Active 52882347 Problem Seizure disorder G40.909 Active 930737146 Problem Upper respiratory infection with cough and congestion J06.9 Active 74820279 Problem Irregular bleeding N92.6 Active 22053541 ALLERGIES No Information ENCOUNTERS Encounter Location Date Diagnosis [place] [address] [place] [id number] [place] [address] 55864- 0159 Jun, [facility] [address] [place] [id number] [place] [address] 89532- 1764 Jun, [facility] [address] [place] [id number] [place] [address] 03184- 1364 May, Bipolar disorder, current episode depressed, severe, without psychotic features F31.4 [facility] [address] [place] [id number] [place] [address] 76061- 1588 May, Well woman exam Z01.419 ; Screening examination for sexually transmitted disease Z11.3 ; Cervical high risk human papillomavirus ( HPV) DNA test positive R87.810 and Atypical squamous cells of undetermined significance on cytologic smear of cervix (ASC-US) R87.610 [facility] [address] [place] [id number] [place] [address] 46946- 2298 May, [facility] [address] [place] [id number] [place] [address] 00696- 2486 10 May, 2018 Acute left ankle pain M25.572 [place] [address] 00005- 2742 07 May, 2018 Bipolar disorder, current episode depressed, severe, without psychotic features F31.4 [facility] [address] 38401- 7967 06 May, 2018 Bipolar disorder, current episode depressed, severe, without psychotic features F31.4 [place] [address] [place] [id number] [place] [address] 80060- 6661 Apr, Visit for TB skin test Z11.1 [place] [address] 56369- 3869 Apr, Mood disorder F39 [place] [address] 05461- 8188 Mar, Seizure disorder G40.909 and Long-term use of high-risk medication Z79.899 [facility] [address] [place] [id number] [place] [address] 60589 -7797 February, Viral gastroenteritis A08.4 [place] [address] 04832- 6386 February, Upper respiratory infection with cough and congestion J06.9 [place] [address] [place] [address] [id number] [place] [address] 04710- 7084 February, Upper respiratory infection with cough and congestion J06.9 and Seizure disorder G40.909 [place] [address] [place] [id number] [place] [address] 85153- 9743 Jan, Seizure disorder G40.909 [place] [address] 34423- 5009 Jan, control counseling Z30.09 and Irregular bleeding N92.6 [place] [address] 28753- 7962 Dec, Hyperlipidemia, unspecified hyperlipidemia type E78.5 [facility] [address] [facility] [id number] [place] [address] Dec, Seizure disorder G40.909 ; Encounter to establish care Z76.89 and Drug-induced constipation K59.03 [facility] [address] [facility] [id number] [place] [address] Dec, IMMUNIZATIONS No Known Immunizations SOCIAL HISTORY Never Assessed REASON FOR VISIT intake PLAN OF CARE Activity Details Follow Up next available Reason: VITAL SIGNS MEDICATIONS Medication Instructions Dosage Frequency Start Date End Date Duration Status MetFORMIN HCl ER Unknown Depakote ER 500 mg Orally daily Take 3 tablets daily 24h 30 Unknown RESULTS No Results PROCEDURES Procedure Date Ordered Result Body Site Psych diagnostic evaluation, established patient April 15, 2018 INSTRUCTIONS MEDICATIONS ADMINISTERED No Known Medications MEDICAL (GENERAL) HISTORY Type Description Date Medical History generalized epilepsy-last seizure March 13 2016 Medical History Pelvic Inflammatory Disease Medical History Endometriosis Medical History HPV Medical History Ovarian Cysts, PCOS Surgical History appendectomy Hospitalization History septic 2017 Hospitalization History appendectomy 2006
--- OUTSIDE RECORDS SUMMARY | 2018-09-15 11:49 | XMS REPORT ---
Author Author HENOK LANDA Organization [facility] Address [address] [place] [address] Care Team Providers Care Jig Operator Name Role Phone HENOK LANDA Unavailable PROBLEMS Type Condition ICD9-CM Code [id number] Code Onset Dates Condition Status SNOMED Code Problem Mood disorder F39 Active 62926765 Problem Cervical high risk human papillomavirus (HPV) DNA test positive R87.810 Active 068706333 Problem Bipolar disorder, current episode depressed, severe, without psychotic features F31.4 Active 762407897 Problem Hyperlipidemia, unspecified hyperlipidemia type E78.5 Active 63270770 Problem Seizure disorder G40.909 Active 132124958 Problem Upper respiratory infection with cough and congestion J06.9 Active 09854100 Problem Irregular bleeding N92.6 Active 21812271 ALLERGIES No Information ENCOUNTERS Encounter Location Date Diagnosis [place] [address] [place] [id number] [place] [address] 62533- 8698 Jun, [facility] [address] [place] [id number] [place] [address] 93282- 0809 Jun, [facility] [address] [place] [address] 91648- 7376 Jun, [facility] [address] [place] [id number] [place] [address] 02199- 4638 Jun, Seizure disorder G40.909 [facility] [address] [place] [id number] [place] [address] 72696- 7333 Jun, [facility] [address] [place] [id number] [place] [address] 94817- 1956 May, Bipolar disorder, current episode depressed, severe, without psychotic features F31.4 [facility] [address] [place] [id number] [place] [address] 49974- 2858 May, Well woman exam Z01.419 ; Screening examination for sexually transmitted disease Z11.3 ; Cervical high risk human papillomavirus ( HPV) DNA test positive R87.810 and Atypical squamous cells of undetermined significance on cytologic smear of cervix (ASC-US) R87.610 [place] [address] [place] [id number] [place] [address] 35143- 6537 May, [place] [address] 30766- 0934 May, Acute left ankle pain M25.572 [place] [address] 39205- 0323 07 May, 2018 Bipolar disorder, current episode depressed, severe, without psychotic features F31.4 [place] [address] 26113- 7986 May, Bipolar disorder, current episode depressed, severe, without psychotic features F31.4 [place] [address] 55725- 0212 Apr, Visit for TB skin test Z11.1 [place] [address] 39890- 2396 Apr, Mood disorder F39 [place] [address] 02912- 2261 Mar, Seizure disorder G40.909 and Long-term use of high-risk medication Z79.899 [facility] [address] [place] [id number] [place] [address] 39181 -8947 February, Viral gastroenteritis A08.4 [place] [address] 33942- 3491 February, Upper respiratory infection with cough and congestion J06.9 [facility] [address] [id number] [place] [address] 38582- 6718 February, Upper respiratory infection with cough and congestion J06.9 and Seizure disorder G40.909 [place] [address] [place] [id number] [address]- 1246 Jan, Seizure disorder G40.909 [place] [address] [place] [address] 42128- 1633 Jan, control counseling Z30.09 and Irregular bleeding N92.6 [place] [address] [place] [address] 32766- 7788 Dec, Hyperlipidemia, unspecified hyperlipidemia type E78.5 [place] [address] [place] [address] 16027- 3007 Dec, Seizure disorder G40.909 ; Encounter to establish care Z76.89 and Drug-induced constipation K59.03 [place] [address] [address]- 7288 Dec, IMMUNIZATIONS No Known Immunizations SOCIAL HISTORY Never Assessed REASON FOR VISIT TB skin test-[facility] PLAN OF CARE Activity Details Follow Up 48-72 hours Reason: VITAL SIGNS MEDICATIONS Unknown Medications RESULTS No Results PROCEDURES Procedure Date Ordered Result Body Site TB INTRADERMAL 2018-05-06 N/A TB INTRADERMAL TEST May 06, 2018 INSTRUCTIONS MEDICATIONS ADMINISTERED No Known Medications MEDICAL (GENERAL) HISTORY Type Description Date Medical History generalized epilepsy-last seizure March 13 2016 Medical History Pelvic Inflammatory Disease Medical History Endometriosis Medical History HPV Medical History Ovarian Cysts, PCOS Surgical History appendectomy Hospitalization History septic 2017 Hospitalization History appendectomy 2006
--- OUTSIDE RECORDS SUMMARY | 2018-09-15 11:49 | XMS REPORT ---
Author Author ROSA M RASHMI Organization [facility] Address [address] [place] [address] Care Team Providers Care It Quality Assurance Analyst Name Role Phone ROSA M RASHMI Unavailable PROBLEMS Type Condition ICD9-CM Code [id number] Code Onset Dates Condition Status SNOMED Code Problem Mood disorder F39 Active 12615737 Problem Cervical high risk human papillomavirus (HPV) DNA test positive R87.810 Active 352927922 Problem Bipolar disorder, current episode depressed, severe, without psychotic features F31.4 Active 274454407 Problem Hyperlipidemia, unspecified hyperlipidemia type E78.5 Active 57989285 Problem Seizure disorder G40.909 Active 478422804 Problem Upper respiratory infection with cough and congestion J06.9 Active 23320144 Problem Irregular bleeding N92.6 Active 47857449 ALLERGIES Substance Reaction Event Type Date Status Tramadol HCl rash, shakes, dry heaves Drug Allergy May, Active Codeine Phosphate rash, shaking, nausea Drug Allergy May, Active adhesive rash Non Drug Allergy May, Active ENCOUNTERS Encounter Location Date Diagnosis [facility] [address] [place] [address] 62506- 3056 Jun, [facility] [address] [place] [address] 89018- 5963 Jun, [facility] [address] [place] [address] 19679- 8064 Jun, [facility] [id number] [place] [address] 73117- 2595 Jun, Seizure disorder G40.909 [facility] [address] [place] [address] 24111- 6014 Jun, [facility] [id number] [place] [address] 50357- 7982 May, Bipolar disorder, current episode depressed, severe, without psychotic features F31.4 [place] [id number] [place] [address] 84274- 7963 May, Well woman exam Z01.419 ; Screening examination for sexually transmitted disease Z11.3 ; Cervical high risk human papillomavirus ( HPV) DNA test positive R87.810 and Atypical squamous cells of undetermined significance on cytologic smear of cervix (ASC-US) R87.610 [place] [address] 59998- 4823 May, [place] [address] 93355- 7617 May, Acute left ankle pain M25.572 [place] [address] 22194- 0157 May, Bipolar disorder, current episode depressed, severe, without psychotic features F31.4 [place] [address] 63773- 9373 May, Bipolar disorder, current episode depressed, severe, without psychotic features F31.4 [place] [id number] [place] [address] 66043- 5437 Apr, Visit for TB skin test Z11.1 [place] [id number] [place] [address] 34767- 1231 Apr, Mood disorder F39 [place] [address] 65160- 3157 Mar, Seizure disorder G40.909 and Long-term use of high-risk medication Z79.899 [facility] [address] 89927 [address] February, Viral gastroenteritis A08.4 [place] [address] 85545- 6622 February, Upper respiratory infection with cough and congestion J06.9 [place] [address] [address] February, Upper respiratory infection with cough and congestion J06.9 and Seizure disorder G40.909 [place] [address] [address] 8531 Jan, Seizure disorder G40.909 [place] [address] [place] [address] 32458- 9473 Jan, control counseling Z30.09 and Irregular bleeding N92.6 [place] [address] [place] [address] 00764- 0805 Dec, Hyperlipidemia, unspecified hyperlipidemia type E78.5 [place] [address] [place] [address] 90187- 2135 Dec, Seizure disorder G40.909 ; Encounter to establish care Z76.89 and Drug-induced constipation K59.03 [place] [address] [place] [address] 94432- 9461 Dec, IMMUNIZATIONS No Known Immunizations SOCIAL HISTORY Never Assessed REASON FOR VISIT intake [facility] PLAN OF CARE Activity Details Follow Up 3 Weeks Reason: VITAL SIGNS Height 5'7" in 2018-05-17 Weight 209.3 lbs 2018-05-17 Heart Rate 92 bpm 2018-05-17 Respiratory Rate 20 2018-05-17 BMI 32.78 kg/m2 2018-05-17 Blood pressure systolic 148 mmHg 2018-05-17 Blood pressure diastolic 106 mmHg 2018-05-17 MEDICATIONS Medication Instructions Dosage Frequency Start Date End Date Duration Status Latuda 40 MG Orally every dinner time 1 tablet with food May, 14 days Active Depakote ER 500 mg Orally daily Take 3 tablets daily 24h 30 Active Latuda 20 MG Orally every dinner time for one week 1 tablet May, 7 days Active RESULTS No Results PROCEDURES No Known procedures INSTRUCTIONS MEDICATIONS ADMINISTERED No Known Medications MEDICAL (GENERAL) HISTORY Type Description Date Medical History generalized epilepsy-last seizure March 13 2016 Medical History Pelvic Inflammatory Disease Medical History Endometriosis Medical History HPV Medical History Ovarian Cysts, PCOS Surgical History appendectomy Hospitalization History septic 2017 Hospitalization History appendectomy 2006
--- OUTSIDE RECORDS SUMMARY | 2018-09-15 11:49 | XMS REPORT ---
Author Author YE WILKES [facility] Address [address] [place] [address] Care Team Providers Care Laboratory Equipment Installer Name Role Phone YE WILKES Unavailable PROBLEMS Type Condition ICD9-CM Code [id number] Code Onset Dates Condition Status SNOMED Code Problem Bipolar disorder, current episode depressed, severe, without psychotic features F31.4 Active 942144290 Problem Upper respiratory infection with cough and congestion J06.9 Active 74470545 Problem Seizure disorder G40.909 Active 327876998 Problem Mood disorder F39 Active 89555247 Problem Irregular bleeding N92.6 Active 16253208 Problem Hyperlipidemia, unspecified hyperlipidemia type E78.5 Active 14272492 ALLERGIES Substance Reaction Event Type Date Status Tramadol HCl rash Drug Allergy Mar, Active Codeine Phosphate rash Drug Allergy Mar, Active adhesive rash Non Drug Allergy Mar, Active ENCOUNTERS Encounter Location Date Diagnosis [facility] [id number] [place] [address] 41603- 8141 Jun, [facility] [id number] [place] [address] 39475- 0859 May, [facility] [id number] [place] [address] 77396- 3590 May, [facility] [id number] [place] [address] 16407- 9556 May, [facility] [id number] [place] [address] 27095- 6730 May, [facility] [id number] [place] [address] 22322- 5389 May, Acute left ankle pain M25.572 [facility] [id number] [place] [address] 17992- 0815 May, Bipolar disorder, current episode depressed, severe, without psychotic features F31.4 [place] [id number] [place] [address] 42079- 8494 May, Bipolar disorder, current episode depressed, severe, without psychotic features F31.4 [place] [id number] [place] [address] 26578- 9134 Apr, Visit for TB skin test Z11.1 [place] [address] 45614- 9252 Apr, Mood disorder F39 [address] 51853- 4335 Mar, Seizure disorder G40.909 and Long-term use of high-risk medication Z79.[address] [facility] [address] 68[address] -[address] February, Viral gastroenteritis A08.4 [place] [address] 40527- 9098 February, Upper respiratory infection with cough and congestion J06.9 [place] [address] 69831- 4675 February, Upper respiratory infection with cough and congestion J06.9 and Seizure disorder G40.909 [place] [id number] [place] [address] 33290- 3819 Jan, Seizure disorder G40.909 [place] [address] 40968- 0608 Jan, control counseling Z30.09 and Irregular bleeding N92.6 [place] [id number] [place] [address] 44907- 1112 Dec, Hyperlipidemia, unspecified hyperlipidemia type E78.5 [place] [address] 70972- 7661 Dec, Seizure disorder G40.909 ; Encounter to establish care Z76.89 and Drug-induced constipation K59.03 [facility] [address] [facility] [id number] [address] Dec, IMMUNIZATIONS No Known Immunizations SOCIAL HISTORY Never Assessed REASON FOR VISIT Seizure f/u -- rei aldana, nedding refill on medication PLAN OF CARE Activity Details Follow Up 3-6 Months Reason:seizure VITAL SIGNS Height 5'7" in 2018-03-23 Weight 196.7 lbs 2018-03-23 Temperature 97.7 degrees Fahrenheit 2018-03-23 Heart Rate 72 bpm 2018-03-23 Respiratory Rate 18 2018-03-23 BMI 30.80 kg/m2 2018-03-23 Blood pressure systolic 126 mmHg 2018-03-23 Blood pressure diastolic 70 mmHg 2018-03-23 MEDICATIONS Medication Instructions Dosage Frequency Start Date End Date Duration Status MetFORMIN HCl ER Active Depakote ER 500 mg Orally daily Take 3 tablets daily 24h 30 Active RESULTS No Results PROCEDURES Procedure Date Ordered Result Body Site ASSAY, DIPROPYLACETIC ACID March 23, 2018 INSTRUCTIONS MEDICATIONS ADMINISTERED No Known Medications MEDICAL (GENERAL) HISTORY Type Description Date Medical History generalized epilepsy-last seizure March 13 2016 Medical History Pelvic Inflammatory Disease Medical History Endometriosis Medical History HPV Medical History Ovarian Cysts, PCOS Surgical History appendectomy Hospitalization History septic 2017 Hospitalization History appendectomy 2006
--- OUTSIDE RECORDS SUMMARY | 2018-09-15 11:49 | XMS REPORT ---
Author Author YE WILKES [facility] Address [address] [place] [address] Care Team Providers Care Label Remover Name Role Phone YE WILKES Unavailable PROBLEMS Type Condition ICD9-CM Code [id number] Code Onset Dates Condition Status SNOMED Code Problem Mood disorder F39 Active 54331178 Problem Cervical high risk human papillomavirus (HPV) DNA test positive R87.810 Active 071643454 Problem Bipolar disorder, current episode depressed, severe, without psychotic features F31.4 Active 496834927 Problem Hyperlipidemia, unspecified hyperlipidemia type E78.5 Active 60853102 Problem Seizure disorder G40.909 Active 018868023 Problem Upper respiratory infection with cough and congestion J06.9 Active 44477670 Problem Irregular bleeding N92.6 Active 27009454 ALLERGIES Substance Reaction Event Type Date Status Tramadol HCl rash, shakes, dry heaves Drug Allergy May, Active Codeine Phosphate rash, shaking, nausea Drug Allergy May, Active adhesive rash Non Drug Allergy May, Active ENCOUNTERS Encounter Location Date Diagnosis [place] [id number] [place] [address] 86172- 3760 Sep, [facility] [id number] [place] [address] 37350- 6168 Jun, Cervical high risk human papillomavirus (HPV) DNA test positive R87.810 [facility] [address] [address]- 7617 Jun, [facility] [id number] [place] [address] 52832- 3803 Jun, Bipolar disorder, current episode depressed, severe, without psychotic features F31.4 [facility] [address] [place] [address] 48849- 8121 Jun, Seizure disorder G40.909 [facility] [id number] [place] [address] 63969- 3655 Jun, [place] [id number] [place] [address] 98668- 9175 May, Bipolar disorder, current episode depressed, severe, without psychotic features F31.4 [place] [id number] [place] [address] 05876- 8536 May, Well woman exam Z01.419 ; Screening examination for sexually transmitted disease Z11.3 ; Cervical high risk human papillomavirus ( HPV) DNA test positive R87.810 and Atypical squamous cells of undetermined significance on cytologic smear of cervix (ASC-US) R87.610 [place] [id number] [place] [address] 65587- 1995 May, [place] [address] 96164- 9811 May, Acute left ankle pain M25.572 [place] [id number] [place] [address] 17314- 8720 May, Bipolar disorder, current episode depressed, severe, without psychotic features F31.4 [facility] [id number] [place] [address] 68893- 5875 May, Bipolar disorder, current episode depressed, severe, without psychotic features F31.4 [place] [id number] [place] [address] 18474- 5530 Apr, Visit for TB skin test Z11.1 [place] [id number] [place] [address] 80505- 7906 Apr, Mood disorder F39 [place] [id number] [place] [address] 90391- 4153 Mar, Seizure disorder G40.909 and Long-term use of high-risk medication Z79.899 [facility] [id number] [place] [address] 72372 -4143 February, Viral gastroenteritis A08.4 [place] [id number] [place] [address] 22021- 3461 February, Upper respiratory infection with cough and congestion J06.9 [place] [id number] [place] [address] 06756- 4439 February, Upper respiratory infection with cough and congestion J06.9 and Seizure disorder G40.909 [place] [id number] [place] [address] 89711- 6882 Jan, Seizure disorder G40.909 [place] [address] [place] [address]- 3865 Jan, control counseling Z30.09 and Irregular bleeding N92.6 [place] [id number] [place] [address] 43916- 6898 Dec, Hyperlipidemia, unspecified hyperlipidemia type E78.5 [place] [id number] [place] [address] 31528- 6180 Dec, Seizure disorder G40.909 ; Encounter to establish care Z76.89 and Drug-induced constipation K59.03 [place] [address] [place] [address] 35479- 7327 Dec, IMMUNIZATIONS No Known Immunizations SOCIAL HISTORY Never Assessed REASON FOR VISIT ankle pain, left----DBennettRN, started with severe pain/pressure in vagina on , began radiating down left leg, ankle and foot, seen at ER yesterday PLAN OF CARE Activity Details Follow Up 2-4 wk prn Reason: VITAL SIGNS Height 5'7" in 2018-05-21 Weight 208 lbs 2018-05-21 Temperature 98.2 degrees Fahrenheit 2018-05-21 Heart Rate 90 bpm 2018-05-21 Respiratory Rate 20 2018-05-21 BMI 32.57 kg/m2 2018-05-21 Blood pressure systolic 120 mmHg 2018-05-21 Blood pressure diastolic 78 mmHg 2018-05-21 MEDICATIONS Medication Instructions Dosage Frequency Start Date End Date Duration Status Depakote ER 500 mg Orally daily Take 3 tablets daily 24h 30 Active Latuda 40 mg Orally every dinner time 1 tablet with food May, 90 days Active Latuda 20 MG Orally every dinner [...]
--- OUTSIDE RECORDS SUMMARY | 2018-09-15 11:49 | XMS REPORT ---
Author Author ROSA M RASHMI Organization [facility] Address [address] [place] [address] Care Team Providers Care Datastage Developer Name Role Phone ROSA M RASHMI Unavailable PROBLEMS Type Condition ICD9-CM Code IBS99-JC Code Onset Dates Condition Status SNOMED Code Problem Mood disorder F39 Active 18964482 Problem Cervical high risk human papillomavirus (HPV) DNA test positive R87.810 Active 625474163 Problem Bipolar disorder, current episode depressed, severe, without psychotic features F31.4 Active 931711977 Problem Hyperlipidemia, unspecified hyperlipidemia type E78.5 Active 63883301 Problem Seizure disorder G40.909 Active 660602292 Problem Upper respiratory infection with cough and congestion J06.9 Active 71019048 Problem Irregular bleeding N92.6 Active 49266419 ALLERGIES No Information ENCOUNTERS Encounter Location Date Diagnosis [facility] [id number] [place] [address] 22300- 5240 Sep, [facility] [id number] [place] [address] 94624- 9114 Jun, [facility] [id number] [place] [address] 03224- 8491 Jun, [facility] [id number] [place] [address] 21947- 1899 Jun, Bipolar disorder, current episode depressed, severe, without psychotic features F31.4 [facility] [id number] [place] [address] 78666- 6593 10 Jun, 2018 Seizure disorder G40.909 [facility] [id number] [place] [address] 83964- 1117 Jun, [facility] [address] 60653- 8481 May, Bipolar disorder, current episode depressed, severe, without psychotic features F31.4 [place] [id number] [place] [address] 37766- 1060 May, Well woman exam Z01.419 ; Screening examination for sexually transmitted disease Z11.3 ; Cervical high risk human papillomavirus ( HPV) DNA test positive R87.810 and Atypical squamous cells of undetermined significance on cytologic smear of cervix (ASC-US) R87.610 [place] [address] 26816- 8435 May, [place] [address] 61084- 7815 May, Acute left ankle pain M25.572 [place] [address] 62082- 3015 May, Bipolar disorder, current episode depressed, severe, without psychotic features F31.4 [place] [address] 69156- 8660 May, Bipolar disorder, current episode depressed, severe, without psychotic features F31.4 [place] [address] 63807- 1415 Apr, Visit for TB skin test Z11.1 [place] [id number] [place] [address] 37886- 8327 Apr, Mood disorder F39 [place] [address] 33781- 5778 Mar, Seizure disorder G40.909 and Long-term use of high-risk medication Z79.899 [facility] [id number] [place] [address] 50838 -7958 February, Viral gastroenteritis A08.4 [place] [address] 21004- 8461 February, Upper respiratory infection with cough and congestion J06.9 [place] [address] [place] [address] 77159- 1084 February, Upper respiratory infection with cough and congestion J06.9 and Seizure disorder G40.909 [place] [address] [place] [address] 70305- 5509 Jan, Seizure disorder G40.909 [place] [address] 47796- 5901 Jan, control counseling Z30.09 and Irregular bleeding N92.6 [place] [address] 98649- 0553 Dec, Hyperlipidemia, unspecified hyperlipidemia type E78.5 [place] [id number] [place] [address] 08546- 3247 Dec, Seizure disorder G40.909 ; Encounter to establish care Z76.89 and Drug-induced constipation K59.03 [place] [address] [place] [address] 36956- 0974 Dec, IMMUNIZATIONS No Known Immunizations SOCIAL HISTORY Never Assessed [facility]IT [facility] OF CARE VITAL SIGNS MEDICATIONS Unknown [...]
[2018-09-15 12:10] LABS: BASOPHILS % (AUTO) 0 % (0-10); EOSINOPHILS # (AUTO) 0.1 10^3/uL (0.0-0.3); EOSINOPHILS % (AUTO) 1 % (0-10); HEMATOCRIT 44 % (35-52); HEMOGLOBIN 14.2 G/DL (11.5-16.0); LYMPHOCYTES # (AUTO) 2.2 X 10^3 (1.0-4.0); LYMPHOCYTES % (AUTO) 26 % (12-44); MEAN CORPUSCULAR HEMOGLOBIN 29 PG (25-34); MEAN CORPUSCULAR HGB CONC 33 G/DL (32-36); MEAN CORPUSCULAR VOLUME 88 FL (80-99); MEAN PLATELET VOLUME 12.5 FL (7.4-10.4); MONOCYTES # (AUTO) 0.5 X 10^3 (0.0-1.0); MONOCYTES % (AUTO) 6 % (0-12); NEUTROPHILS # (AUTO) 5.7 X 10^3 (1.8-7.8); NEUTROPHILS % (AUTO) 68 % (42-75); PLATELET COUNT 190 10^3/uL (130-400); RED BLOOD COUNT 4.94 10^6/uL (4.35-5.85); RED CELL DISTRIBUTION WIDTH 13.2 % (10.0-14.5); WHITE BLOOD COUNT 8.4 10^3/uL (4.3-11.0)
[2018-09-15 12:15] LABS: BILIRUBIN,URINE NEGATIVE (NEGATIVE); CLARITY,URINE CLEAR; COLOR,URINE AMBER; GLUCOSE, URINE (UA) NEGATIVE (NEGATIVE); KETONES,URINE 2+ (NEGATIVE); LEUKOCYTE ESTERASE ,URINE 1+ (NEGATIVE); NITRITE,URINE NEGATIVE (NEGATIVE); PH,URINE 6 (5-9); PROTEIN,URINE 1+ (NEGATIVE); UROBILINOGEN,URINE NORMAL (NORMAL)
[2018-09-15 12:28] LABS: BACTERIA,URINE TRACE /HPF
[2018-09-15 12:32] LABS: ALANINE AMINOTRANSFERASE 25 U/L (0-55); ALBUMIN 4.3 GM/DL (3.2-4.5); ALKALINE PHOSPHATASE 89 U/L (40-136); AMYLASE 34 U/L (25-125); BILIRUBIN,TOTAL 0.8 MG/DL (0.1-1.0); BUN/CREATININE RATIO 15; CALCIUM 9.8 MG/DL (8.5-10.1); CARBON DIOXIDE 24 MMOL/L (21-32); CHLORIDE 109 MMOL/L (98-107); CREATININE SERUM 0.99 MG/DL (0.60-1.30); GFR ESTIMATED > 60; GLUCOSE 98 MG/DL (70-105); LIPASE 32 U/L (8-78); POTASSIUM 3.8 MMOL/L (3.6-5.0); SODIUM 143 MMOL/L (135-145); TOTAL PROTEIN 6.9 GM/DL (6.4-8.2)
--- NOTE | 2018-09-15 12:50 | ED General ---
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 Nursing Sepsis Screen: No Definite Risk Source of Information: Patient Exam Limitations: No Limitations History of Present Illness Date Seen by Provider: Sep 15, 2018 Time Seen by Provider: 11:35 Initial Comments Patient is a 23-year-old female who presents to the emergency room with complaints of nausea and lightheadedness that started 20 minutes prior to arrival. She has a history of epilepsy with absent seizures and reports that her coworkers witnessed her standing for long period of time appearing to " space out" she takes Depakote for her seizures. Timing/Duration: 1/2 Hour Associated Systoms: Nausea/Vomiting Allergies and Home Medications Allergies Coded Allergies: adhesive (Verified Allergy, Unknown, 02/13/18) tramadol (Verified Allergy, Unknown, 02/13/18) Uncoded Allergies: CODIENE (Allergy, Unknown, 02/13/18) Home Medications Ondansetron 8 Mg Tab.rapdis, 8 MG PO Q6H PRN for NAUSEA/VOMITING-1ST LINE Prescribed by: ROSARIO BUSH on 02/13/18 1557 Ondansetron HCl 4 Mg Tab, 4 MG PO Q4H PRN for NAUSEA/VOMITING-1ST LINE Prescribed by: DARCIE DING on 09/15/18 1301 Patient Home Medication List Home Medication List Reviewed: Yes Review of Systems Review of Systems Constitutional: no symptoms reported, see HPI Gastrointestinal: see HPI, nausea, vomiting Genitourinary: see HPI, other (vaginal bleeding but reports that she thinks she is starting her period.) Psychiatric/Neurological: See HPI, Seizure Past Riocowo-Rnyhqi-Sltkee Hx Past Med/Social Hx: Reviewed Nursing Past Med/Soc Hx Patient Social History Alcohol Use: Rarely Uses Recreational Drug Use: No Smoking Status: Current Everyday Smoker Type Used: Cigarettes Recent Foreign Travel: No Contact w/Someone Who Travel: No Recent Infectious Disease Expo: No Recent Hopitalizations: Yes (advises admitted in [place] 8 months ago for sepsis) Physical Abuse: No Sexual Abuse: No Mistreated: No Fear: No Seasonal Allergies Seasonal Allergies: No Past Medical History Surgeries: Yes Appendectomy Respiratory: No Cardiac: No Neurological: Yes Headaches /Migraines, Seizure Disorder Female Reproductive Disorders: Pelvic Inflammatory Dis, Endometriosis, Polycystic Ovarian Dis Genitourinary: No Gastrointestinal: No Musculoskeletal: No Endocrine: No HEENT: No Cancer: No Psychosocial: Yes Anxiety, Bipolar, Depression Integumentary: No Family Medical History Reviewed Nursing Family Hx No Pertinent Family Hx, Psychiatric Problems Physical Exam Vital Signs Vital Signs - First Documented 09/15/18 11:20 Temp 97.9 Pulse 89 Resp 20 B/P (MAP) 138/90 (106) Pulse Ox 98 Capillary Refill : Less Than 3 Seconds Height, Weight, BMI Height: 5'5.00" Weight: 208lbs. oz. 94.948631gv; BMI Method:Stated General Appearance: No Apparent Distress, WD/WN Respiratory: Chest Non Tender, Lungs Clear, Normal Breath Sounds, No Accessory Muscle Use, No Respiratory Distress Cardiovascular: Regular Rate, Rhythm, No Edema, No Gallop, No JVD, No Murmur, Normal Peripheral Pulses Gastrointestinal: Normal Bowel Sounds, No Organomegaly, No Pulsatile Mass, Non Tender, Soft Neurologic/Psychiatric: Alert, Oriented x3, Normal Mood/Affect Skin: Normal Color, Warm/Dry Progress/Results/Core Measures Suspected Sepsis Recent Fever Within 48 Hours: No Infection Criteria Present: None New/Unexplained Altered Menta: No Sepsis Screen: No Definite Risk SIRS Temperature:97.9 Pulse: 89 Respiratory Rate: 20 Laboratory Tests 09/15/18 12:02: White Blood Count 8.4 Blood Pressure 138 /90 Mean: 106 Laboratory Tests 09/15/18 12:02: Creatinine 0.99, Platelet Count 190, Total Bilirubin 0.8 Results/Orders Lab Results Laboratory Tests Test 09/15/18 12:02 09/15/18 12:06 Range/Units White Blood Count 8.4 4.3-11.0 10^3/uL Red Blood Count 4.94 4.35-5.85 10^6/uL Hemoglobin 14.2 11.5-16.0 G/DL Hematocrit 44 35-52 % Mean Corpuscular Volume 88 80-99 FL Mean Corpuscular Hemoglobin 29 25-34 PG Mean Corpuscular Hemoglobin Concent 33 32-36 G/DL Red Cell Distribution Width 13.2 10.0-14.5 % Platelet Count 190 130-400 10^3/uL Mean Platelet Volume 12.5 H 7.4-10.4 FL Neutrophils (%) (Auto) 68 42-75 % Lymphocytes (%) (Auto) 26 12-44 % Monocytes (%) (Auto) 6 0-12 % Eosinophils (%) (Auto) 1 0-10 % Basophils (%) (Auto) 0 0-10 % Neutrophils # (Auto) 5.7 1.8-7.8 X 10^3 Lymphocytes # (Auto) 2.2 1.0-4.0 X 10^3 Monocytes # (Auto) 0.5 0.0-1.0 X 10^3 Eosinophils # (Auto) 0.1 0.0-0.3 10^3/uL Basophils # (Auto) 0.0 0.0-0.1 10^3/uL Sodium Level 143 135-145 MMOL/L Potassium Level 3.8 3.6-5.0 MMOL/L Chloride Level 109 H 98-107 MMOL/L Carbon Dioxide Level 24 21-32 MMOL/L Anion Gap 10 5-14 MMOL/L Blood Urea Nitrogen 15 7-18 MG/DL Creatinine 0.99 0.60-1.30 MG/DL Estimat Glomerular Filtration Rate > 60 BUN/Creatinine Ratio 15 Glucose Level 98 70-105 MG/DL Calcium Level 9.8 8.5-10.1 MG/DL Corrected Calcium 9.6 8.5-10.1 MG/DL Total Bilirubin 0.8 0.1-1.0 MG/DL Aspartate Amino Transf (AST/SGOT) 22 5-34 U/L Alanine Aminotransferase (ALT/SGPT) 25 0-55 U/L Alkaline Phosphatase 89 40-136 U/L Total Protein 6.9 6.4-8.2 GM/DL Albumin 4.3 3.2-4.5 GM/DL Amylase Level 34 25-125 U/L Lipase 32 8-78 U/L Serum Test, Qualitative NEGATIVE NEGATIVE Urine Color ROBERTA H Urine Clarity CLEAR Urine pH 6 5-9 Urine Specific [place] 1.025 H 1.016-1.022 Urine Protein 1+ H NEGATIVE Urine Glucose (UA) NEGATIVE NEGATIVE Urine Ketones 2+ H NEGATIVE Urine Nitrite NEGATIVE NEGATIVE Urine Bilirubin NEGATIVE NEGATIVE Urine Urobilinogen NORMAL NORMAL MG/DL Urine Leukocyte Esterase 1+ H NEGATIVE Urine RBC (Auto) 4+ H NEGATIVE Urine RBC 2-5 H /HPF Urine WBC 2-5 /HPF Urine Squamous Epithelial Cells 5-10 /HPF Urine Crystals NONE /LPF Urine Bacteria TRACE /HPF Urine Casts NONE /LPF Urine Mucus MODERATE H /LPF Urine Culture Indicated YES Micro Results Microbiology 09/15/18 Urine Culture - Final, Complete Strep agalactiae Group B See Comments My Orders Orders - DARCIE DING Comprehensive Metabolic Panel (09/15/18 11:43) Lipase (09/15/18 11:43) Amylase (09/15/18 11:43) Ua Culture If Indicated (09/15/18 11:43) Hcg,Qualitative Serum (09/15/18 11:43) Saline Lock/Iv-Start (09/15/18 11:43) Cbc With Automated Diff (09/15/18 11:43) Ondansetron Injection (Zofran Injectio (09/15/18 11:45) Urine Culture (09/15/18 12:06) Medications Given in ED Vital Signs/I&O Capillary Refill : Less Than 3 Seconds Blood Pressure Mean: 106 Progress Note : Time: 12:54 Progress Note The patient's nausea has resolved at this time. She agrees with plans for discharge, return precautions were given. Departure Impression Primary Impression: Nausea and vomiting Additional Impression: Seizure-like activity Disposition: 01 HOME, SELF-CARE Condition: Stable/Unchanged Departure-Patient Inst. Decision time for Depature: 12:54 Referrals: [facility] (PCP/Family) Primary Care Physician Patient Instructions: Nausea and Vomiting, Adult, Seizures, Adult (DC) Add. Discharge Instructions: Take medication as directed. Resume your home medication as directed. Follow-up with her primary care provider within 1 week for recheck. Return back to the emergency room for any worsening symptoms or concerns as needed. All discharge instructions reviewed with patient and/or family. Voiced understanding. Scripts Ondansetron HCl (Zofran) 4 Mg Tab 4 MG PO Q4H PRN for NAUSEA/VOMITING-1ST LINE, #14 TAB Prov: DARCIE DING 09/15/18 DARCIE DING Sep 15, 2018 12:50
[2018-09-15] MEDS ORDERED: ONDN4T PO (13:01)
[2018-09-15 13:02] VITALS: BP 132/80
== END 2018-09-15 13:02 | disposition home or self-care (01) ==
LOC: EDUNIT# 11:05 → ER 11:06
DX: G40.909 Epilepsy, unspecified, not intractable, without status epilepticus (principal); R11.2 Nausea with vomiting, unspecified; G43.909 Migraine, unspecified, not intractable, without status migrainosus; F41.9 Anxiety disorder, unspecified; F31.9 Bipolar disorder, unspecified; F17.210 Nicotine dependence, cigarettes, uncomplicated; Z90.49 Acquired absence of other specified parts of digestive tract; Z91.048 Other nonmedicinal substance allergy status; Z88.6 Allergy status to analgesic agent; Z87.448 Personal history of other diseases of urinary system; Z88.5 Allergy status to narcotic agent
CPT/HCPCS: 36415; 80053; 81000; 82150; 83690; 84703; 85025; 87077; 87088

== ENCOUNTER 2018-11-12 09:50 | Emergency (ER) | payer SELFPAY ==
[~2018-11-12] VITALS: Ht 165.1 cm; Wt 84.8 kg
[~2018-11-12 09:50] MED LIST changes: +ONDN4T PO
--- OUTSIDE RECORDS SUMMARY | 2018-11-12 09:55 | XMS REPORT ---
Author Author RASHMI SUAREZ Organization [facility] Address [address] [place] [address] Care Team Providers Care Fox Raiser Name Role Phone RASHMI SUAREZ Unavailable PROBLEMS Type Condition ICD9-CM Code [id number] Code Onset Dates Condition Status SNOMED Code Problem Mood disorder F39 Active 03565395 Problem Dry eyes, bilateral H04.123 Active 916246208 Problem Cervical high risk human papillomavirus (HPV) DNA test positive R87.810 Active 905616713 Problem Bipolar disorder, current episode depressed, severe, without psychotic features F31.4 Active 643337599 Problem Hyperlipidemia, unspecified hyperlipidemia type E78.5 Active 12777429 Problem Seizure disorder G40.909 Active 992049107 Problem Upper respiratory infection with cough and congestion J06.9 Active 31103477 Problem Irregular bleeding N92.6 Active 81479872 ALLERGIES No Information ENCOUNTERS Encounter Location Date Diagnosis [facility] [id number] [place] [phone] Oct, [facility] [id number] [place] [address] [phone] Oct, [facility] [id number] [place] [phone] Sep, Bipolar disorder, current episode depressed, severe, without psychotic features F31.4 [facility] [id number] [place] [phone] Aug, [facility] [id number] [place] [address] [phone]- [phone] Jun, Cervical high risk human papillomavirus (HPV) DNA test positive R87.810 [facility] [id number] [place] [phone] Jun, [address], [place] [address] Jun, Bipolar disorder, current episode depressed, severe, without psychotic features F31.4 [facility] [id number] [place] [address] 69145- 7013 Jun, Seizure disorder G40.909 [place] [id number] [place] [address] 73949- [phone] Jun, [place] [id number] [place] [address] [phone]- [phone] May, Bipolar disorder, current episode depressed, severe, without psychotic features F31.4 [address] [id number] [place] [address] [phone]- 5831 May, Well woman exam Z01.419 ; Screening examination for sexually transmitted disease Z11.3 ; Cervical high risk human papillomavirus ( HPV) DNA test positive R87.810 and Atypical squamous cells of undetermined significance on cytologic smear of cervix (ASC-US) R87.610 [place] [id number] [place] [address] 6[address]15- [address] May, [place] [id number] [place] [address] [phone]- [address]148 May, Acute left ankle pain M25.572 [address] [address] [place] [address] 34746- 3911 May, Bipolar disorder, current episode depressed, severe, without psychotic features F31.4 [address] [id number] [place] [address] 41158- [phone] May, Bipolar disorder, current episode depressed, severe, without psychotic features F31.4 [place] [id number] [place] [address] [phone]- 5501 Apr, Visit for TB skin test Z11.1 [place] [address] [place] [address] 60332- 5433 Apr, Mood disorder F39 [facility] [id number] [place] [address] 67872- 6175 Mar, Seizure disorder G40.909 and Long-term use of high-risk medication Z79.899 [facility] [id number] [place] [address] [phone] February, Viral gastroenteritis A08.4 [facility] [address] [address] February, Upper respiratory infection with cough and congestion J06.9 [place] [address] [address]- [address] February, Upper respiratory infection with cough and congestion J06.9 and Seizure disorder G40.909 [place] [address] [address]- [address] Jan, Seizure disorder G40.909 [place] [id number] [place] [address] 62873- [phone] Jan, control counseling Z30.09 and Irregular bleeding N92.6 [place] [address] [address]- [address] Dec, Hyperlipidemia, unspecified hyperlipidemia type E78.5 [place] [id number] [place] [address] 62948- 5007 Dec, Seizure disorder G40.909 ; Encounter to establish care Z76.89 and Drug-induced constipation K59.03 [place] [id number] [place] [address] 82062- [phone] Dec, IMMUNIZATIONS No Known Immunizations SOCIAL HISTORY Never Assessed REASON FOR VISIT MARTY f/uMeenakshi mercado ma PLAN OF CARE VITAL SIGNS Height 5'7" in 2018-09-27 Weight 194.3 lbs 2018-09-27 Heart Rate 109 bpm 2018-09-27 Respiratory Rate 20 2018-09-27 BMI 30.43 kg/m2 2018-09-27 Blood pressure systolic 130 mmHg 2018-09-27 Blood pressure diastolic 88 mmHg 2018-09-27 MEDICATIONS Medication Instructions Dosage Frequency Start Date [...]
--- NOTE | 2018-11-12 12:25 | ED Cough/URI ---
General Chief Complaint: Cough/Cold/Flu Symptoms Stated Complaint: SORE THROAT;RUNNY NOSE;HIVES Nursing Triage Note: C/O SORE THROAT. COUGHING W/BLOOD IN SPUTUM. ALSO STATES SHE'S BREAKING IN HIVES L-FA. Sepsis Screen: No Definite Risk Source: patient Exam Limitations: no limitations History of Present Illness Date Seen by Provider: Nov 12, 2018 Time Seen by Provider: 12:00 Initial Comments 23-year-old female who presents to the emergency room with complaints of productive cough, nasal congestion, sore throat, and bilateral ear pain for the past week. Denies fevers. Timing/Duration: week Severity/Quality: mild, productive cough Associated Symptoms: cough, nasal congestion, sore throat Allergies and Home Medications Allergies Coded Allergies: adhesive (Verified Allergy, Unknown, 02/13/18) tramadol (Verified Allergy, Unknown, 02/13/18) Uncoded Allergies: CODIENE (Allergy, Unknown, 02/13/18) Home Medications Azithromycin 250 Mg Tablet, 250 MG PO UD TAKE 2 TABLETS TODAY, THEN TAKE 1 TABLET DAILY FOR 4 MORE DAYS Prescribed by: DARCIE DING on 11/12/18 1248 Ondansetron 8 Mg Tab.rapdis, 8 MG PO Q6H PRN for NAUSEA/VOMITING-1ST LINE Prescribed by: ROSARIO BUSH on 02/13/18 1557 Ondansetron HCl 4 Mg Tab, 4 MG PO Q4H PRN for NAUSEA/VOMITING-1ST LINE Prescribed by: DARCIE DING on 09/15/18 1301 Prednisone 10 Mg Tab.ds.pk, 10 MG PO UD Prescribed by: DARCIE DING on 11/12/18 1248 Patient Home Medication List Home Medication List Reviewed: Yes Review of Systems Review of Systems Constitutional: no symptoms reported, see HPI EENTM: see HPI, nose congestion, throat pain Respiratory: see HPI, cough All Other Systems Reviewed Negative Unless Noted: Yes Past Wjkivrn-Tchnur-Bdmasu Hx Past Med/Social Hx: Reviewed Nursing Past Med/Soc Hx Patient Social History Type Used: Cigarettes Recent Foreign Travel: No Contact w/Someone Who Travel: No Recent Infectious Disease Expo: No Recent Hopitalizations: Yes (advises admitted in [place] 8 months ago for sepsis) Seasonal Allergies Seasonal Allergies: No Past Medical History Surgeries: Yes Appendectomy Respiratory: No Cardiac: No Neurological: Yes Headaches /Migraines, Seizure Disorder : No Female Reproductive Disorders: Pelvic Inflammatory Dis, Endometriosis, Polycystic Ovarian Dis Genitourinary: No Gastrointestinal: No Musculoskeletal: No Endocrine: No HEENT: No Cancer: No Psychosocial: Yes Anxiety, Bipolar, Depression Integumentary: No Family Medical History Reviewed Nursing Family Hx No Pertinent Family Hx, Psychiatric Problems Physical Exam Vital Signs - First Documented 11/12/18 10:56 Temp 97.7 Pulse 89 Resp 18 B/P (MAP) 134/80 (98) Pulse Ox 97 O2 Delivery Room Air Capillary Refill : Less Than 3 Seconds Height: 5'5.00" Weight: 187lbs. 0.4oz. 84.422136jv; BMI Method:Actual General Appearance: WD/WN, no apparent distress Eyes: Bilateral Eye Normal Inspection, Bilateral Eye PERRL, Bilateral Eye EOMI HEENT: PERRL/EOMI, normal ENT inspection, TMs normal, pharynx normal Respiratory: chest non-tender, lungs clear, normal breath sounds, no respiratory distress, no accessory muscle use, respiratory distress Cardiovascular: normal peripheral pulses, regular rate, rhythm, no edema, no gallop, no JVD, no murmur Neurologic/Psychiatric: alert, normal mood/affect, oriented x 3 Skin: normal color, warm/dry Progress/Results/Core Measures Suspected Sepsis Recent Fever Within 48 Hours: Yes Infection Criteria Present: Suspected New Infection New/Unexplained Altered Menta: No Sepsis Screen: No Definite Risk SIRS Temperature:97.7 Pulse: 89 Respiratory Rate: 18 Blood Pressure 134 /80 Mean: 98 Results/Orders Lab Results Laboratory Tests Test 11/12/18 12:08 Range/Units Group A Streptococcus Screen NEGATIVE NEGATIVE Micro Results Microbiology 11/12/18 Throat Culture - Final, Complete No Beta Strep isolated 11/12/18 Influenza Types A,B Antigen (ERIN) - Final, Complete My Orders Orders - DARCIE DING Chest Pa/Lat (2 View) (11/12/18 12:04) Influenza A And B Antigens (11/12/18 12:04) Rapid Strep A Screen (11/12/18 12:04) Vital Signs/I&O 11/12/18 11/12/18 10:56 12:55 Temp 97.7 97.7 Pulse 89 89 Resp 18 18 B/P (MAP) 134/80 (98) 134/80 (98) Pulse Ox 97 97 O2 Delivery Room Air Capillary Refill : Less Than 3 Seconds Blood Pressure Mean: 98 Diagnostic Imaging Diagonstic Imaging: Xray Plain Films/CT/US/NM/MRI: chest Comments NAME: SIENNA GUZMAN [facility] REC#: [id number] PT STATUS: DEP ER : 1995 PHYSICIAN: DARCIE DING ADMIT DATE: 11/12/18/ER Signed Date of Exam: 11/12/18 CHEST PA/LAT (2 VIEW) CLINICAL INDICATION: Patient complains of sore throat, coughing up blood in sputum. EXAM: Chest x-ray, PA and lateral views. COMPARISONS: Chest x-ray dated 02/13/2018. FINDINGS: Lungs/pleura: Lungs are clear. There is no pneumothorax. There is no pleural effusion. Mediastinum: Unremarkable. Pulmonary vasculature: Unremarkable. Heart: Unremarkable. Bones/extrathoracic soft tissue: Unremarkable. IMPRESSION: There is no radiographic evidence of acute cardiopulmonary process. Dictated by: Dictated on workstation # [id number] Dict: 11/12/18 1234 Trans: 11/12/18 1655 Interpreted by: ELIDIA SEGURA MD Electronically signed by: ELIDIA SEGURA MD 11/12/18 1655 Departure Impression Primary Impression: Bronchitis Disposition: 01 HOME, SELF-CARE Condition: Stable/Unchanged Departure-Patient Inst. Decision time for Depature: 12:44 Referrals: [facility] [place] Primary Care Physician Patient Instructions: Acute Bronchitis, Adult (DC) Add. Discharge Instructions: Take medications as directed. Follow-up with your primary care provider within 1 week for recheck. Return back to the emergency room for worsening symptoms or concerns as needed. All discharge instructions reviewed with patient and/or family. Voiced understanding. Scripts Prednisone (Prednisone) 10 Mg Tab.ds.pk 10 MG PO UD, #1 PKG Prov: DARCIE DING 11/12/18 Azithromycin (Zithromax) 250 Mg Tablet 250 MG PO UD, #6 TAB TAKE 2 TABLETS TODAY, THEN TAKE 1 TABLET DAILY FOR 4 MORE DAYS Prov: DARCIE DING 11/12/18 Work/School Note: Work Release Form Date Seen in the Emergency Department: Nov 12, 2018 Return to Work: Nov 13, 2018 Restrictions: No Restrictions DARCIE DING Nov 12, 2018 12:25
--- NOTE | 2018-11-12 12:38 | Diagnostic Imaging Report ---
CLINICAL INDICATION: Patient complains of sore throat, coughing up blood in sputum. EXAM: Chest x-ray, PA and lateral views. COMPARISONS: Chest x-ray dated 02/13/2018. FINDINGS: Lungs/pleura: Lungs are clear. There is no pneumothorax. There is no pleural effusion. Mediastinum: Unremarkable. Pulmonary vasculature: Unremarkable. Heart: Unremarkable. Bones/extrathoracic soft tissue: Unremarkable. IMPRESSION: There is no radiographic evidence of acute cardiopulmonary process. Dictated by: Dictated on workstation # [id number]
[2018-11-12] MEDS ORDERED: AZIT250T PO (12:48)
[2018-11-12] MEDS ORDERED: PRED10TA22 PO (12:48)
[2018-11-12 12:55] VITALS: BP 134/80
== END 2018-11-12 13:11 | disposition home or self-care (01) ==
LOC: EDUNIT# 09:50 → ER 09:51
DX: J40 Bronchitis, not specified as acute or chronic (principal); G43.909 Migraine, unspecified, not intractable, without status migrainosus; G40.909 Epilepsy, unspecified, not intractable, without status epilepticus; F41.9 Anxiety disorder, unspecified; F31.9 Bipolar disorder, unspecified; Z87.448 Personal history of other diseases of urinary system; Z91.048 Other nonmedicinal substance allergy status; Z88.6 Allergy status to analgesic agent; Z88.5 Allergy status to narcotic agent; Z79.52 Long term (current) use of systemic steroids; Z90.49 Acquired absence of other specified parts of digestive tract
CPT/HCPCS: 71046; 87430; 87804